=== PATIENT | male | born 1975 | race Caucasian/White ===

== ENCOUNTER 2023-07-03 11:46 | Outpatient (REF) | payer MEDICARE, MEDICAID, SELFPAY | END 2023-07-03 11:47 | disposition home or self-care (01) | LOC: HO.LAB 11:46 | PROVIDERS: PCP Family Medicine; Visit Provider Family Medicine | DX: Z13.89 Encounter for screening for other disorder (principal) ==

== ENCOUNTER 2023-07-16 10:02 | Outpatient (REF) | payer MEDICARE, SELFPAY ==
[2023-07-16 10:37] LABS: MANUAL DIFF FLAG NO
[2023-07-16 10:57] LABS: Basophils Percent Auto 0.6 % (0-2); Eosinophils Absolute Auto 0.1 X10*3/uL (0.0-0.4); Eosinophils Percent Auto 2.5 % (0-4); Hematocrit 41.2 % (42.0-52.0); Imm Gran Abs Auto 0.02 X10*3/uL (0.00-0.03); Imm Gran Pct Auto 0.4 % (0.0-0.4); Lymphocytes Absolute Auto 2.4 X10*3/uL (1.2-4.9); Lymphocytes Percent Auto 45.6 % (20-40); Mean Corpuscular Hemoglobin 28.5 pg (27.0-33.0); Mean Corpuscular Volume 83.9 fL (80.0-98.0); Mean Platelet Volume 9.1 fL (9.4-12.4); Monocytes Absolute Auto 0.4 X10*3/uL (0.1-1.2); Monocytes Percent Auto 6.8 % (2-11); Neutrophils Absolute Auto 2.3 x10*3/uL (2.0-8.3); Neutrophils Percent Auto 44.1 % (45-73); Platelet Count 329 X10*3/uL (160-400); Red Blood Count 4.91 X10*6/uL (4.60-5.80); Red Cell Distribution Width 12.4 % (11.0-16.0); White Blood Count 5.3 X10*3/uL (4.8-10.8)
[2023-07-16 11:28] LABS: Alanine Aminotransferase 22 U/L (0-40); Albumin Level 4.4 g/dL (3.5-5.0); Alkaline Phosphatase 67 U/L (39-117); Anion Gap 12 (12-20); Aspartate Amino Transferase 20 U/L (5-37); Bilirubin Total 0.3 mg/dL (0.0-1.0); Blood Urea Nitrogen 14 mg/dL (9-16); Calcium 9.8 mg/dL (8.4-10.2); Carbon Dioxide 25 mmol/L (22-29); Chloride 107 mmol/L (96-108); Cholesterol 242 mg/dL (<200); Estimated Glomerular Filt Rate > 60; Glucose Random 91 mg/dL (60-115); HDL Cholesterol 55 mg/dL (>40); LDL Cholesterol Calculated 159 mg/dL (<100); Potassium 3.8 mmol/L (3.3-5.1); Sodium 140 mmol/L (135-145); Total Protein 7.6 g/dL (6.5-8.0); Triglycerides 140 mg/dL (<150)
[2023-07-16 11:45] LABS: TSH reflex Free T4 1.13 uIU/mL (0.32-4.0)
[2023-07-19 18:44] LABS: Levetiracetam Keppra <2.0 mcg/mL (6.0-46.0)
== END 2023-07-16 10:03 | disposition home or self-care (01) ==
LOC: HO.LAB 10:02
PROVIDERS: PCP Family Medicine; Visit Provider Family Medicine
DX: Z00.00 Encounter for general adult medical examination without abnormal findings (principal); G40.909 Epilepsy, unspecified, not intractable, without status epilepticus
CPT/HCPCS: 36415; 80053; 80061; 80177; 84443; 85025

== ENCOUNTER 2024-01-03 09:58 | Outpatient (AMB) | payer MEDICARE, MEDICAID, SELFPAY ==
[2024-01-03 10:08] VITALS: BP 122/70; PULSE 81; O2SAT 98; BMI 28.6
--- NOTE | 2024-01-03 10:08 | A.OFFPC_ITS ---
Vital Signs 01/03/24 10:08 Height 5 ft 5 in Weight 172 lb BMI 28.6 BP 122/70 Blood Pressure Location Lt brachial Position Sitting Pulse 81 Pulse Source Pulse Oximeter Pulse Oximetry (%) 98 Oxygen Delivery Method Room Air Intake Visit Reasons: New patient-req physical Intake Note: Patient is here as new patient, and would like to talk about depression. Allergies phenytoin [From Dilantin] Allergy (Mild, Verified 01/03/24 10:11) Unknown cephlasporins Allergy (Mild, Uncoded 01/03/24 10:11) Unknown Tobacco use date assessed: 01/03/24 Dental Screening Dental Screen Date: 01/03/24 Did you have a dental visit in the last 12 months?: Yes Did you have a dental problem in the last 6 months where you did not have access to dental care?: No Was dental information given to patient?: Patient has dentist HPI New patient-req physical HPI Details New patient Prior PCP:?Edgar Jackson. [facility]. Last office visit/CPE: Dec 12 2022 Acute issue(s): Anxiety/depression. PMHx: Hx Head trauma age 8. Epilesy/ Seizure d.o. L eye Blindness. R eye vision is low with visual feild loss. SurgHx: L ing hernia & mesh. Ear surgeries. FHx: Pt unsure SocHx: Nonsmoker. EtOH None. No drugs PFSH Medical History (Updated 01/03/24 @ 11:01 by Luis Cruz) Blindness of left eye Epilepsy Meningitis Surgical History (Updated 01/03/24 @ 10:31 by Tia Isbell [facility]) H/O brain surgery Social History Household Members: Family Both parents involved: Yes Caregiver staying overnight: No Housing: Apartment Are you a primary resident care manager rn to a significant other at home: No Do you presently have visiting nurse or other home services: No Alcohol intake: never Patient Tobacco Use Status: Never used Tobacco service: No Current occupational status: disabled Cognitive needs: No Hearing needs: No Vision needs: Yes (Patient is blind in left eye.) Questionnaire PHQ-9 Over the last 2 weeks, how often have you been bothered by any of the following problems? 1. Little interest or pleasure in doing things: not at all 2. Feeling down, depressed, or hopeless: more than half the days 3. Trouble falling or staying asleep, or sleeping too much: nearly every day 4. Feeling tired or having little energy: not at all 5. Poor appetite or overeating: not at all 6. Feeling bad about yourself - or that you are a failure or have let yourself or your family down: several days 7. Trouble concentrating on things, such as reading the newspaper or watching television: not at all 8. Moving or speaking so slowly that other people could have noticed. Or the opposite - being so fidgety or restless that you have been moving around a lot more than usual: nearly every day 9. Thoughts that you would be better off or of hurting yourself in some way: not at all Total score: 9 Depression Screening Interpretation: Positive Depression Screening Follow-up: New Medication prescribed Depression Screening Done: Yes 77458 - PHQ-9 Billing: Yes Source: Developed by Drs. Ney Vincent, Leann Ventura, Ej Culver and colleagues, with an educational efra from [employer]. Thrive Questionnaire Date Thrive assessed: 01/03/24 I am a: Patient What is your living situation today?: I have a steady place to live Within the past 12 months, did the food you bought not last and you didn't have the money to get more?: Never true Within the past 12 months, did you worry whether your food would run out before you got money to buy more?: Never true Do you have trouble paying for medicines?: No Do you have trouble getting transportation to medical appointments?: No Do you have trouble paying your heating and electricity bill?: No Do you have trouble taking care of your child, family member or friend?: No Do you have trouble with day-to-day activities such as bathing, preparing meals, shopping, managing finances, etc.?: No Are you currently unemployed and looking for a job?: No Are you interested in more education?: No THRIVE Score: 0 AUDIT C Alcohol Use Questionnaire (AUDIT-C) 1. How often do you have a drink containing alcohol?: Never 3. How often do you have six or more drinks on one occasion?: Never Total Score: 0 WILLIAM-7 AMB Questionnaire WILLIAM-7 Date WILLIAM - 7 assessed: 01/03/24 Feeling nervous, anxious, or on edge: 3 = Nearly every day Not being able to stop or control worryin = Nearly every day Worrying too much about different things: 3 = Nearly every day Trouble relaxin = Nearly every day Being so restless that it is hard to sit still: 3 = Nearly every day Becoming easily annoyed or irritable: 3 = Nearly every day Feeling afraid as if something awful might happen: 0 = Not at all Total WILLIAM-7 score (0-4 normal; 5-9 mild; 10-14 moderate; 15-21 severe): 18 Source: Developed by Drs. Ney Vincent, Leann Ventura, Ej Culver and colleagues, with an educational efra from [employer]. WILLIAM-7 Assessment Billing WILLIAM-7 Assessment Tool: WILLIAM-7 Assessment 77151 Review of Systems Const Denies chills, Denies fatigue, Denies fever(s), Denies headache(s) and Denies weakness ENT Denies dizziness and Denies headache(s) Card Denies chest pain, Denies lightheadedness, Denies dyspnea and Denies other (Palpitations) Resp Denies cough, Denies dyspnea, Denies wheezing and Denies other ( shortness of breath) Musc Denies numbness and Denies tingling Neuro Denies dizziness, Denies headache(s), Denies numbness, Denies tingling, Denies paresthesias and Denies weakness Psych Reports anxiety and Reports depression Endo Denies fatigue Aller/Immun Denies wheezing Physical exam (Primary Care) Vital Signs: Last Vital Signs Pulse 81 01/03/24 10:08 BP 122/70 01/03/24 10:08 Pulse Ox 98 01/03/24 10:08 Oxygen Delivery Method Room Air 01/03/24 10:08 BMI result Body Mass Index 28.6 Tobacco/Smoking Status: Tobacco use Status Tobacco use date assessed 01/03/24 01/03/24 10:28 Patient Tobacco Use Status Never used Tobacco 01/03/24 10:36 PHQ-9: PHQ-9 Score PHQ-9: Total score 9 01/03/24 10:32 Depression Screening Interpretation: Positive Depression Screening Follow-up: New Medication prescribed Thrive Assessment: Date of Thrive Assessment Date Thrive assessed 01/03/24 01/03/24 10:28 Const General: no acute distress and well developed Nutritional Appearance: well nourished Orientation/consciousness: patient oriented x3 HENTX Head: Yes normocephalic and Yes atraumatic Eyes General: appearance normal, both eyes and all related structures Pupils: Equal, round and reactive pupils present EOM: EOMs intact bilaterally Resp Effort & Inspection: normal respiratory effort Auscultation: clear to auscultation bilaterally Cardio Rate: regular rate Rhythm: regular rhythm Heart sounds: S1 normal heart sound present, S2 normal heart sound present, no gallops, no murmurs and no rubs Neuro General: patient oriented x3 and gait normal Cranial nerves: Yes Equal, round and reactive pupils present Psych Affect: normal affect Assessment and Plan Assessment & Plan (1) Anxiety with depression: Code(s): F41.8 - Other specified anxiety disorders Plan: Significant?anxiety?and?depression. Had?tried?sertraline?in?the?past?and?is?on?lamotrigine?for?seizures?but?can?al so?help?with?mood?disorders. No?significant?concerns?for?bipolar?disorder Will?trial?citalopram Offered?to?refer?patient?to?therapist?but?he?would?like?to?think?about?this. (2) Epilepsy: Code(s): G40.909 - Epilepsy, unspecified, not intractable, without status epilepticus Plan: On?lamotrigine?since?he?was?a?child. Has?not?had?a?seizure?in?many?years Stable Continue?lamotrigine (3) Blindness of left eye: Code(s): H54.40 - Blindness, one eye, unspecified eye Plan: Complete?blindness?in?left?eye?and poor?vision?with?decreased?field?of?view?of?right?eye Referred?to?ophthalmology (4) Seizure disorder: Code(s): G40.909 - Epilepsy, unspecified, not intractable, without status epilepticus (5) Vision changes: Code(s): H53.9 - Unspecified visual disturbance (6) Laboratory exam ordered as part of routine general medical examination: Code(s): Z00.00 - Encounter for general adult medical examination without abnormal findings Plan: Check?lab Orders: Orders Microalbumin, Random (w Creat) Today I10 - Essential (primary) hypertension Prostate Specific Antigen Scr Today Z12.5 - Encounter for screening for malignant neoplasm of prostate Lipid Panel Today Z00.00 - Encounter for general adult medical examination without abnormal findings UA and rflx microscopic Today Z00.00 - Encounter for general adult medical examination without abnormal findings Vitamin D 25-OH Total Today E55.9 - Vitamin D deficiency, unspecified Comprehensive [place]. Panel Fast Today Z00.00 - Encounter for general adult medical examination without abnormal findings TSH reflex Free T4 Today Z00.00 - Encounter for general adult medical examination without abnormal findings Complete Blood Count Auto Diff Today Z00.00 - Encounter for general adult medical examination without abnormal findings Referrals Ophthalmology Referral H53.9 - Unspecified visual disturbance, H54.40 - Blindness, one eye, unspecified eye Medications: New citalopram 10 mg PO DAILY 30 tabs 1RF 30 days Coding Level of Care Code New Pt Level 3 (46288) Diagnoses Anxiety with depression F41.8 Epilepsy G40.909 Blindness of left eye H54.40 Seizure disorder G40.909 Vision changes H53.9 Laboratory exam ordered as part of routine general medical examination Z00.00 Additional Codes WILLIAM-7 Assessment Billing - WILLIAM-7 Assessment Tool: WILLIAM-7 Assessment [id number] ([id number])
== END 2024-01-03 11:20 | disposition home or self-care (01) ==
PROVIDERS: PCP Family Medicine; Visit Provider Family Medicine
DX: F41.8 Other specified anxiety disorders (principal); G40.909 Epilepsy, unspecified, not intractable, without status epilepticus; H53.9 Unspecified visual disturbance
CPT/HCPCS: 96127; 99203

== ENCOUNTER 2024-02-14 10:33 | Outpatient (AMB) | payer MEDICARE, SELFPAY ==
[2024-02-14 10:36] VITALS: BP 118/70; PULSE 69; O2SAT 95; BMI 28.5
--- NOTE | 2024-02-14 10:36 | A.OFFPC_ITS ---
Vital Signs 02/14/24 10:36 Height 5 ft 5 in Weight 171 lb 4 oz BMI 28.5 BP 118/70 Blood Pressure Location Lt brachial Position Sitting Pulse 69 Pulse Source Pulse Oximeter Pulse Oximetry (%) 95 Oxygen Delivery Method Room Air Intake Visit Reasons: f/u anxiety/depression Intake Note: Patient is here to follow up on anxiety/depression today. Allergies phenytoin [From Dilantin] Allergy (Mild, Verified 02/14/24 10:38) Unknown cephlasporins Allergy (Mild, Uncoded 02/14/24 10:38) Unknown Tobacco use date assessed: 02/14/24 Dental Screening Dental Screen Date: 02/14/24 HPI f/u anxiety/depression 2 HPI Details 48 y/o male presents to f/u anxiety/depr ession. Trialing citalopram and recommended therapist. Had tried sertraline in the past and is on lamotrigine for seizures but can also help with mood disorders. PHQ-9 4 and WILLIAM-7 1 today. [facility] Medical History (Updated 01/03/24 @ 11:01 by Luis Cruz) Blindness of left eye Epilepsy Meningitis Surgical History (Updated 01/03/24 @ 10:31 by Tia Isbell CMA) H/O brain surgery Social History (Updated 01/03/24 @ 10:36 by Tia Isbell CMA) Household Members: Family Both parents involved: Yes Caregiver staying overnight: No Housing: Apartment Are you a primary resident care associate to a significant other at home: No Do you presently have visiting nurse or other home services: No Alcohol intake: never Patient Tobacco Use Status: Never used Tobacco e-Cigarette/Vaping Use: Never Used service: No Current occupational status: disabled Cognitive needs: No Hearing needs: No Vision needs: Yes (Patient is blind in left eye.) Questionnaire PHQ-9 Over the last 2 weeks, how often have you been bothered by any of the following problems? 1. Little interest or pleasure in doing things: not at all 2. Feeling down, depressed, or hopeless: not at all 3. Trouble falling or staying asleep, or sleeping too much: nearly every day 4. Feeling tired or having little energy: several days 5. Poor appetite or overeating: not at all 6. Feeling bad about yourself - or that you are a failure or have let yourself or your family down: not at all 7. Trouble concentrating on things, such as reading the newspaper or watching television: not at all 8. Moving or speaking so slowly that other people could have noticed. Or the opposite - being so fidgety or restless that you have been moving around a lot more than usual: not at all 9. Thoughts that you would be better off or of hurting yourself in some way: not at all Total score: 4 Depression Screening Interpretation: Negative Depression Screening Done: Yes 51303 - PHQ-9 Billing: Yes Source: Developed by Drs. Ney Vincent, Ej Crump and colleagues, with an educational efra from [employer] (acquired by [employer] in 2014). Thrive Questionnaire Date Thrive assessed: 01/03/24 WILLIAM-7 AMB Questionnaire WILLIAM-7 Date WILLIAM - 7 assessed: 02/14/24 Feeling nervous, anxious, or on edge: 0 = Not at all Not being able to stop or control worryin = Not at all Worrying too much about different things: 0 = Not at all Trouble relaxin = Not at all Being so restless that it is hard to sit still: 0 = Not at all Becoming easily annoyed or irritable: 1 = Several days Feeling afraid as if something awful might happen: 0 = Not at all Total WILLIAM-7 score (0-4 normal; 5-9 mild; 10-14 moderate; 15-21 severe): 1 Source: Developed by Drs. Ney Vincent, Ej Crump and colleagues, with an educational efra from [employer] (acquired by [employer] in 2014). WILLIAM-7 Assessment Billing WILLIAM-7 Assessment Tool: WILLIAM-7 Assessment 76247 Review of Systems Const Denies chills, Denies fatigue, Denies fever(s), Denies headache(s) and Denies weakness ENT Denies dizziness and Denies headache(s) Card Denies dyspnea Resp Denies cough, Denies dyspnea, Denies wheezing and Denies other (shortness of breath) Musc Denies numbness and Denies tingling Neuro Denies dizziness, Denies headache(s), Denies numbness, Denies tingling and Denies weakness Psych Denies anxiety and Denies depression Endo Denies fatigue Aller/Immun Denies wheezing Physical exam (Primary Care) Vital Signs: Last Vital Signs Pulse 69 02/14/24 10:36 BP 118/70 02/14/24 10:36 Pulse Ox 95 02/14/24 10:36 Oxygen Delivery Method Room Air 02/14/24 10:36 BMI result Body Mass Index 28.5 Tobacco/Smoking Status: Tobacco use Status Tobacco use date assessed 02/14/24 02/14/24 10:39 Patient Tobacco Use Status Never used Tobacco 02/14/24 10:39 e-Cigarette/Vaping Use Never Used 02/14/24 10:39 PHQ-9: PHQ-9 Score PHQ-9: Total score 4 02/14/24 10:58 Depression Screening Interpretation: Negative Thrive Assessment: Date of Thrive Assessment Date Thrive assessed 01/03/24 02/14/24 10:39 Const General: well developed; No acute distress Nutritional Appearance: well nourished Orientation/consciousness: patient oriented x3 HENMT Head: Yes normocephalic and Yes atraumatic Eyes General: appearance normal, both eyes and all related structures Pupils: Equal, round and reactive pupils present EOM: EOMs intact bilaterally Resp Effort & Inspection: normal respiratory effort Auscultation: clear to auscultation bilaterally Cardio Rate: regular rate Rhythm: regular rhythm Heart sounds: S1 normal heart sound present, S2 normal heart sound present, no gallops, no murmurs and no rubs Neuro General: patient oriented x3 and gait normal Cranial nerves: Yes Equal, round and reactive pupils present Psych Affect: normal affect Assessment and Plan Assessment & Plan (1) Anxiety with depression: Code(s): F41.8 - Other specified anxiety disorders Plan: Significant?improvement?in?anxiety?and?depression. Continue?citalopram?10?mg?daily. We?discussed?that?at?some?point?he?may?need?an ?increase?in?his?medication?and?he?will?let?me?know?if?he?is?having?worsening?of ?his?symptoms. Patient?has?had?longstanding?mood?disorder?since?a?head?injury?in?1982.??We?disc ussed?he?may?always?need?some?medication?to?help?with?mood Also?encouraged?exercise He?has?another?appointment?in?May?for?his?physical. Coding Level of Care Code Est Pt Level 3 (35153) Diagnoses Anxiety with depression F41.8 Additional Codes WILLIAM-7 Assessment Billing - WILLIAM-7 Assessment Tool: WILLIAM-7 Assessment [id number] ([id number])
== END 2024-02-14 11:12 | disposition home or self-care (01) ==
PROVIDERS: PCP Family Medicine; Visit Provider Family Medicine
DX: F41.8 Other specified anxiety disorders (principal)
CPT/HCPCS: 99213

== ENCOUNTER 2024-04-17 10:55 | Outpatient (AMB) | payer MEDICARE, SELFPAY ==
--- NOTE | 2024-04-17 11:13 | MHC.PC.OV ---
Vital Signs 04/17/24 11:14 Height 5 ft 5 in Weight 171 lb 6 oz BMI 28.5 BP 120/60 Blood Pressure Location Lt brachial Position Sitting Pulse 73 Pulse Source Pulse Oximeter Pulse Oximetry (%) 97 Oxygen Delivery Method Room Air Intake Visit Reasons: CPE Follow up labs Intake Note: Patient is here for his physical today, forgot to do his labs. Patient would like Citalopram increase, and is concerned about insomnia. Allergies phenytoin [From Dilantin] Allergy (Mild, Verified 04/17/24 11:18) Unknown cephlasporins Allergy (Mild, Uncoded 04/17/24 11:18) Unknown Medication List - Last Reconciled 04/17/24 by Dale Odom MD citalopram 10 mg PO DAILY 30 days ibuprofen (Advil) 800 mg PO Q6H lamotrigine 150 mg PO BID Tobacco use date assessed: 04/17/24 Dental Screening Dental Screen Date: 02/14/24 HPI CPE Follow up labs HPI Details 48 y/o male presents for a CPE with f/u labs and health maintenance. No recent labs to review. He is on citalopram 10mg daily. He is requesting an increase of his citalopram. He does note citalopram has been helping significantly. He does not have a therapist. Pt reports difficulty sleeping. He states mind does not race and is unable to fall asleep. He states he has trialed melatonin, ambien, triptophan in the past which did not work. He reports difficulty sleeping every night. He has had difficulty sleeping since the s. He reports he does have sleep apnea. He does use a CPAP machine which does not help. He walks frequently for exercise. [facility] Medical History Blindness of left eye Epilepsy Meningitis Surgical History H/O brain surgery Social History Household Members: Family Housing: Apartment Are you a primary acute care nurse to a significant other at home: No Do you presently have visiting nurse or other home services: No Alcohol intake: never Patient Tobacco Use Status: Never used Tobacco e-Cigarette/Vaping Use: Never Used service: No Current occupational status: disabled Cognitive needs: No Hearing needs: No Vision needs: Yes (Patient is blind in left eye.) Questionnaire PHQ-9 Over the last 2 weeks, how often have you been bothered by any of the following problems? 1. Little interest or pleasure in doing things: not at all 2. Feeling down, depressed, or hopeless: not at all 3. Trouble falling or staying asleep, or sleeping too much: nearly every day 4. Feeling tired or having little energy: several days 5. Poor appetite or overeating: not at all 6. Feeling bad about yourself - or that you are a failure or have let yourself or your family down: not at all 7. Trouble concentrating on things, such as reading the newspaper or watching television: several days 8. Moving or speaking so slowly that other people could have noticed. Or the opposite - being so fidgety or restless that you have been moving around a lot more than usual: not at all 9. Thoughts that you would be better off or of hurting yourself in some way: not at all Total score: 5 Depression Screening Interpretation: Negative Depression Screening Done: Yes 56833 - PHQ-9 Billing: Yes Source: Developed by Drs. Ney Vincent, Leann Ventura, Ej Culver and colleagues, with an educational efra from [employer]. Thrive Questionnaire Date Thrive assessed: 04/17/24 I am a: Patient What is your living situation today?: I have a steady place to live Within the past 12 months, did the food you bought not last and you didn't have the money to get more?: Never true Within the past 12 months, did you worry whether your food would run out before you got money to buy more?: Never true Do you have trouble paying for medicines?: No Do you have trouble getting transportation to medical appointments?: No Do you have trouble paying your heating and electricity bill?: No Do you have trouble taking care of your child, family member or friend?: No Do you have trouble with day-to-day activities such as bathing, preparing meals, shopping, managing finances, etc.?: No Are you currently unemployed and looking for a job?: No Are you interested in more education?: No THRIVE Score: 0 AUDIT C Alcohol Use Questionnaire (AUDIT-C) 1. How often do you have a drink containing alcohol?: Never 3. How often do you have six or more drinks on one occasion?: Never Total Score: 0 WILLIAM-7 AMB Questionnaire WILLIAM-7 Date WILLIAM - 7 assessed: 04/17/24 Feeling nervous, anxious, or on edge: 1 = Several days Not being able to stop or control worryin = Not at all Worrying too much about different things: 0 = Not at all Trouble relaxin = Not at all Being so restless that it is hard to sit still: 3 = Nearly every day Becoming easily annoyed or irritable: 1 = Several days Feeling afraid as if something awful might happen: 0 = Not at all Total WILLIAM-7 score (0-4 normal; 5-9 mild; 10-14 moderate; 15-21 severe): 5 Source: Developed by Drs. Ney Vincent, Leann Ventura, Ej Culver and colleagues, with an educational efra from [employer]. WILLIAM-7 Assessment Billing WILLIAM-7 Assessment Tool: WILLIAM-7 Assessment 98085 Review of Systems Const Denies chills, Denies fatigue, Denies fever(s), Denies headache(s) and Denies weakness Eyes Denies change in vision ENT Denies dizziness, Denies headache(s), Denies hearing loss, Denies nasal congestion, Denies sinus pain, Denies sinus pressure and Denies sore throat Card Denies chest pain, Denies lightheadedness, Denies dyspnea and Denies other (palpitations) Resp Denies cough, Denies dyspnea and Denies wheezing GI Denies abdominal pain, Denies melena, Denies hematochezia, Denies change in bowel habits, Denies dyspepsia and Denies nausea Denies hematuria and Denies dysuria Musc Denies abnormal gait, Denies myalgias, Denies arthralgias, Denies numbness and Denies tingling Skin/Breast Denies rash, Denies unusual bruising and Denies wounds Neuro Denies abnormal gait, Denies dizziness, Denies headache(s), Denies memory loss, Denies numbness, Denies Sensory deficit (Neuro), Denies tingling and Denies weakness Psych Reports anxiety, Reports depression and Denies memory loss Endo Denies cold intolerance, Denies fatigue, Denies heat intolerance, Denies polydipsia and Denies polyuria Arie/Lymph Denies easy bleeding and Denies easy bruising Aller/Immun Denies wheezing Physical exam (Primary Care) Vital Signs: Last Vital Signs Pulse 73 04/17/24 11:14 BP 120/60 04/17/24 11:14 Pulse Ox 97 04/17/24 11:14 Oxygen Delivery Method Room Air 04/17/24 11:14 BMI result Body Mass Index 28.5 Tobacco/Smoking Status: Tobacco use Status Tobacco use date assessed 04/17/24 04/17/24 11:29 Patient Tobacco Use Status Never used Tobacco 04/17/24 11:17 e-Cigarette/Vaping Use Never Used 04/17/24 11:17 PHQ-9: PHQ-9 Score PHQ-9: Total score 5 04/17/24 11:56 Depression Screening Interpretation: Negative Thrive Assessment: Date of Thrive Assessment Date Thrive assessed 04/17/24 04/17/24 11:29 Const General: no acute distress, well developed, alert and awake Nutritional Appearance: well nourished Orientation/consciousness: patient oriented x3 HENMT Head: Yes normocephalic and Yes atraumatic Ears: hearing grossly normal bilaterally and TM's normal bilaterally General nose exam: Normal external nose present and Normal nares present Mouth: Normal oral and palatal mucosa present and moist mucous membranes Teeth and gingiva: dentition normal Throat: Yes posterior oropharynx normal Eyes Other: L eye blindness General: appearance abnormal, both eyes Pupils: Equal, round and reactive pupils present and Pupil accommodation reflex normal EOM: EOMs intact bilaterally Neck Neck: Yes normal visual inspection, Yes no lymphadenopathy and Yes trachea midline Thyroid: Thyroid normal Carotids: no bruits Lymphatic: no lymphadenopathy noted Chest Chest palpation & inspection: normal inspection of the chest Resp Effort & Inspection: normal respiratory effort Auscultation: clear to auscultation bilaterally Cardio Rate: regular rate Rhythm: regular rhythm Heart sounds: S1 normal heart sound present, S2 normal heart sound present, no gallops, no murmurs and no rubs Bruits: no abdominal aortic bruits and no carotid bruits GI Palpation (GI): No Abdominal aortic bruit present, Soft to palpation, nontender, No hepatosplenomegaly present and No Rebound tenderness present Auscultation: normal bowel sounds General: Yes no CVA tenderness Back/Spine/Pelvis Back: no CVA tenderness Cervical Spine: cervical ROM normal and No Cervical spine tenderness Thoracic/Lumbar Spine: thoraco-lumbar ROM normal, No pain with thoraco-lumbar ROM, No thoracic spinal tenderness and No lumbar spinal tenderness Skin Lesions: no lesions Rashes: no rashes Trauma: no lacerations or abrasions Wounds: no wounds Nails: normal Neuro General: patient oriented x3 Cranial nerves: Yes Equal, round and reactive pupils present Cognition (Neuro): normal cognition Gait exam (Neuro): Normal gait present Motor exam (neuro): 5/5 motor strength present throughout Sensory Exam: No Sensory deficit (Neuro) Deep tendon reflexes (DTR's): Right patellar reflex intensity grade: 2+ and Left patellar reflex intensity grade: 2+ Extrem General: Yes normal to inspection and No edema Psych Appearance: grossly normal Affect: normal affect Attitude: cooperative Thought process: Normal thought process present Assessment and Plan Assessment & Plan (1) Adult general medical exam: Code(s): Z00.00 - Encounter for general adult medical examination without abnormal findings Plan: 48-year-old?male?presents?for?complete?physical?exam Encouraged?healthy?diet?with?active?lifestyle?and?plenty?of?exercise (2) Anxiety with depression: Code(s): F41.8 - Other specified anxiety disorders Plan: Citalopram?is?helping?and?he?requests?an?increase?in?the?medication Will?increase?citalopram?from?10?mg?daily?to?20?mg?daily He?can?let?me?know?how?he?is?doing?with?this?at?follow-up?telemedicine?appointment?in?a?few?weeks (3) Difficulty sleeping: Code(s): G47.9 - Sleep disorder, unspecified Plan: Rather?severe?insomnia?as?well?as?difficulty?staying?asleep?and?patient?has?a?history?of?sleep?apnea?as?well.??Also?has?a?history?of?anxiety?depression?and?epilepsy. Referred?to?,?neurology?and?sleep?medicine Will?trial?some?trazodone (4) Sleep apnea: Code(s): G47.30 - Sleep apnea, unspecified Plan: Patient?has?a?CPAP?machine?encouraged?him?to?continue?using?this (5) Blindness of left eye: Code(s): H54.40 - Blindness, one eye, unspecified eye Plan: Stable (6) Screening for prostate cancer: Code(s): Z12.5 - Encounter for screening for malignant neoplasm of prostate Plan: Check?PSA (7) Screening for colon cancer: Code(s): Z12.11 - Encounter for screening for malignant neoplasm of colon Plan: Will?discuss?at?follow-up?telemedicine?appointment Orders: Orders Microalbumin, Random (w Creat) Today I10 - Essential (primary) hypertension Complete Blood Count Auto Diff Today Z00.00 - Encounter for general adult medical examination without abnormal findings Comprehensive Met. Panel Today G40.909 - Epilepsy, unspecified, not intractable, without status epilepticus Vitamin D 25-OH Total Today E55.9 - Vitamin D deficiency, unspecified UA and rflx microscopic Today Z00.00 - Encounter for general adult medical examination without abnormal findings TSH reflex Free T4 Today Z00.00 - Encounter for general adult medical examination without abnormal findings Prostate Specific Antigen Scr Today Z12.5 - Encounter for screening for malignant neoplasm of prostate Referrals Sleep Medicine Referral G40.909 - Epilepsy, unspecified, not intractable, without status epilepticus, G47.00 - Insomnia, unspecified, G47.30 - Sleep apnea, unspecified Medications: Changed From citalopram 10 mg PO DAILY 30 days 30 tabs 1RF To citalopram 20 mg PO DAILY 30 days 30 tabs 2RF Coding Level of Care Code Est Pt Level 3 (57414) Est Pt Prev Care 40-64y(71393) Diagnoses Adult general medical exam Z00.00 Anxiety with depression F41.8 Difficulty sleeping G47.9 Sleep apnea G47.30 Blindness of left eye H54.40 Screening for prostate cancer Z12.5 Screening for colon cancer Z12.11 Additional Codes WILLIAM-7 Assessment Billing - WILLIAM-7 Assessment Tool: WILLIAM-7 Assessment [id number] ([id number])
[2024-04-17 11:14] VITALS: BP 120/60; PULSE 73; O2SAT 97; BMI 28.5
== END 2024-04-17 12:44 | disposition home or self-care (01) ==
PROVIDERS: PCP Family Medicine; Visit Provider Family Medicine
DX: Z00.00 Encounter for general adult medical examination without abnormal findings (principal); F41.8 Other specified anxiety disorders; G47.9 Sleep disorder, unspecified; G47.30 Sleep apnea, unspecified; Z12.5 Encounter for screening for malignant neoplasm of prostate; Z12.11 Encounter for screening for malignant neoplasm of colon
CPT/HCPCS: 99213; 99396

== ENCOUNTER 2024-04-17 11:58 | Outpatient (REF) | payer MEDICARE, MEDICAID, SELFPAY ==
[2024-04-17 14:20] LABS: MANUAL DIFF FLAG NO
[2024-04-17 14:33] LABS: Basophils Percent Auto 0.7 % (0-2); Eosinophils Absolute Auto 0.1 X10*3/uL (0.0-0.4); Hemoglobin 13.7 g/dl (14.0-18.0); Imm Gran Abs Auto 0.01 X10*3/uL (0.00-0.03); Imm Gran Pct Auto 0.2 % (0.0-0.4); Lymphocytes Absolute Auto 2.9 X10*3/uL (1.2-4.9); Lymphocytes Percent Auto 52.9 % (20-40); Mean Corpuscular HGB Conc 34.3 g/dl (31.0-36.0); Mean Corpuscular Hemoglobin 29.2 pg (27.0-33.0); Mean Corpuscular Volume 85.3 fL (80.0-98.0); Mean Platelet Volume 9.8 fL (9.4-12.4); Monocytes Absolute Auto 0.4 X10*3/uL (0.1-1.2); Monocytes Percent Auto 7.2 % (2-11); Platelet Count 346 X10*3/uL (160-400); Red Blood Count 4.69 X10*6/uL (4.60-5.80); Red Cell Distribution Width 12.5 % (11.0-16.0); White Blood Count 5.4 X10*3/uL (4.8-10.8)
[2024-04-17 14:34] LABS: Appearance Urine Clear; Color Urine Yellow; Glucose Urine UA Negative (Negative); Leukocyte Esterase Urine Negative (Negative); Nitrite Urine Negative (Negative); PH 5.5 (5.0-9.0); Specific Gravity - Urine >= 1.030 (1.005-1.025); Urine Blood Negative (Negative); Urine Ketones Trace mg/dL (Negative); Urine Protein Negative (Neg-Trace)
[2024-04-17 14:58] LABS: Prostate Specific Antigen Scr 0.34 ng/mL (<0.05-4.0)
[2024-04-17 15:06] LABS: Alanine Aminotransferase 15 U/L (0-40); Albumin Level 4.4 g/dL (3.5-5.0); Alkaline Phosphatase 71 U/L (39-117); Anion Gap 12 (12-20); Aspartate Amino Transferase 22 U/L (5-37); Bilirubin Total 0.3 mg/dL (0.0-1.0); Blood Urea Nitrogen 12 mg/dL (9-16); Calcium 9.5 mg/dL (8.4-10.2); Carbon Dioxide 27 mmol/L (22-29); Chloride 104 mmol/L (96-108); Cholesterol 232 mg/dL (<200); Estimated Glomerular Filt Rate > 60; Glucose Fasting 97 mg/dL (60-99); Glucose Random 97 mg/dL (60-115); HDL Cholesterol 51 mg/dL (>40); LDL Cholesterol Calculated 143 mg/dL (<100); Potassium 3.9 mmol/L (3.3-5.1); Sodium 139 mmol/L (135-145); Total Protein 7.4 g/dL (6.5-8.0); Triglycerides 192 mg/dL (<150)
[2024-04-17 15:14] LABS: TSH reflex Free T4 1.14 uIU/mL (0.32-4.0); Vitamin D 25-OH Total 48.6 ng/mL (>30)
[2024-04-17 15:40] LABS: Creatinine Urine 264.48 mg/dL; Microalbum/Creatinine Ratio Ur 10.5 ug/mg cr (<30)
== END 2024-04-17 11:59 | disposition home or self-care (01) ==
LOC: HO.WFDLDS 11:58
PROVIDERS: Visit Provider Family Medicine
DX: Z00.00 Encounter for general adult medical examination without abnormal findings (principal); Z12.5 Encounter for screening for malignant neoplasm of prostate; E55.9 Vitamin D deficiency, unspecified; I10 Essential (primary) hypertension; G40.909 Epilepsy, unspecified, not intractable, without status epilepticus
CPT/HCPCS: 36415; 80053; 80061; 81003; 82043; 82306; 82570; 84153; 84443; 85025

== ENCOUNTER 2024-05-07 14:47 | Outpatient (AMB) | payer MEDICARE, MEDICAID, SELFPAY ==
--- NOTE | 2024-05-07 14:42 | MHC.PC.OV ---
Intake Visit Reasons: f/u CPE-labs via telemedicine Intake Note: Patient is scheduled for telehealth, follow up on labs, he states the Trazodone is not working well, would like to talk about that. Allergies phenytoin [From Dilantin] Allergy (Mild, Verified 04/17/24 11:18) Unknown cephlasporins Allergy (Mild, Uncoded 04/17/24 11:18) Unknown Tobacco use date assessed: 04/17/24 Dental Screening Dental Screen Date: 02/14/24 HPI f/u CPE-labs via telemedicine HPI Details 48 y/o male presents to f/u CPE-labs via telemedicine. Labs were drawn 04/17/24. Reviewed labs with pt. Mild anemia. Triglycerides 192. TC 232. LDL 143. HDL 51. Pt reports ongoing difficulty sleeping. He is on trazodone which does not seem to have been helping. Had an appt. with a sleep specialist but pt states he had been unable to make this. Increased citalopram and pt denies any problems with this. [facility] Medical History Blindness of left eye Epilepsy Meningitis Surgical History H/O brain surgery Social History Household Members: Family Both parents involved: Yes Caregiver staying overnight: No Housing: Apartment Are you a primary director of health care marketing to a significant other at home: No Do you presently have visiting nurse or other home services: No Alcohol intake: never Patient Tobacco Use Status: Never used Tobacco e-Cigarette/Vaping Use: Never Used service: No Current occupational status: disabled Cognitive needs: No Hearing needs: No Vision needs: Yes (Patient is blind in left eye.) Questionnaire Thrive Questionnaire Date Thrive assessed: 04/17/24 WILLIAM-7 AMB Questionnaire WILLIAM-7 Date WILLIAM - 7 assessed: 04/17/24 Source: Developed by Drs. Ney Vincent, Leann Ventura, Ej Culver and colleagues, with an educational efra from [employer]. Review of Systems Const Denies chills, Denies fatigue, Denies fever(s), Denies headache(s) and Denies weakness ENT Denies dizziness and Denies headache(s) Card Denies dyspnea Resp Denies cough, Denies dyspnea, Denies wheezing and Denies other (shortness of breath) Musc Denies numbness and Denies tingling Neuro Denies dizziness, Denies headache(s), Denies numbness, Denies tingling and Denies weakness Psych Denies anxiety and Denies depression Endo Denies fatigue Aller/Immun Denies wheezing Physical exam (Primary Care) Tobacco/Smoking Status: Tobacco use Status Tobacco use date assessed 04/17/24 05/07/24 14:46 Patient Tobacco Use Status Never used Tobacco 05/07/24 14:46 e-Cigarette/Vaping Use Never Used 05/07/24 14:46 Thrive Assessment: Date of Thrive Assessment Date Thrive assessed 04/17/24 05/07/24 14:46 Telehealth Telehealth Telehealth Platform: Telephone Location of provider rendering services: practice address Location of patient: address on file Patient Identification confirmed using: Name, : Yes Telehealth method: voice only Patient verbally consented to treatment: Yes Patient verbally consented to billing insurance company: Yes Patient informed of any privacy concerns related to visit: Yes Assessment and Plan Assessment & Plan (1) Hyperlipidemia: Code(s): E78.5 - Hyperlipidemia, unspecified Plan: Lipids?are?too?high. Encouraged?a?diet?lower?in?saturated?fats?and?cholesterol,?encouraged?exercise?and?weight?loss Will?recheck?in?3?months?and?we?discussed?that?if?he?is?unable?to?bring?his?cholesterol?levels?down?we?should?discuss?medication. (2) Insomnia: Code(s): G47.00 - Insomnia, unspecified Plan: Still?having?difficulty?with?sleep?as?well?as?anxiety Trazodone?is?not?helping?enough?at?50?mg?q.h.s.?so?I?increased?this?to?100?mg?q.h.s. He?seems?to?have?missed?his?appointment?with?sleep?medicine?so?I?have?made?a?new?referral.??Encouraged?patient?to?attend. (3) Anxiety with depression: Code(s): F41.8 - Other specified anxiety disorders Plan: Increase?citalopram?and?had?started?trazodone No?problems?with?these?medications?but?has?only?mild?improvements,?per?patient Will?increase?trazodone?and?he?should?continue?citalopram. Orders: Orders Complete Blood Count Auto Diff Today Z00.00 - Encounter for general adult medical examination without abnormal findings Lipid Panel Today E78.5 - Hyperlipidemia, unspecified, Z00.00 - Encounter for general adult medical examination without abnormal findings Comprehensive [place]. Panel Fast Today E78.5 - Hyperlipidemia, unspecified, Z00.00 - Encounter for general adult medical examination without abnormal findings Reticulocyte Count Today D64.9 - Anemia, unspecified Medications: Changed From trazodone 50 mg PO BEDTIME 30 days PRN 30 tabs 1RF sleep To trazodone 100 mg PO BEDTIME 30 days PRN 30 tabs 1RF sleep Coding Level of Care Code Tele Est Pt Level 2 (08211) Diagnoses Hyperlipidemia E78.5 Insomnia G47.00 Anxiety with depression F41.8
== END 2024-05-07 15:06 | disposition home or self-care (01) ==
LOC: HO.HMGFM 14:47
PROVIDERS: PCP Family Medicine; Visit Provider Family Medicine
DX: E78.5 Hyperlipidemia, unspecified (principal); G47.00 Insomnia, unspecified; F41.8 Other specified anxiety disorders
CPT/HCPCS: 99441

== ENCOUNTER 2024-08-05 08:52 | Outpatient (AMB) | payer MEDICARE, MEDICAID, SELFPAY ==
--- NOTE | 2024-08-05 08:55 | MHC.PC.OV ---
Vital Signs 08/05/24 09:02 Height 5 ft 5 in Weight 169 lb BMI 28.1 BP 104/68 Blood Pressure Location Rt brachial Position Sitting Respiration 14 Pulse 86 Pulse Source Pulse Oximeter Pulse Oximetry (%) 96 Oxygen Delivery Method Room Air Intake Visit Reasons: f/u HLD, difficulty sleeping Intake Note: Follow up labs and difficulty sleeping. Has been out of Trazadone for about a month. Hasnt been taking citolapram for months, unsure if he should still be taking. [employer] Required: No Allergies phenytoin [From Dilantin] Allergy (Mild, Verified 08/05/24 08:59) Unknown cephlasporins Allergy (Mild, Uncoded 08/05/24 08:59) Unknown Tobacco use date assessed: 04/17/24 Dental Screening Dental Screen Date: 02/14/24 HPI f/u HLD, difficulty sleeping HPI Details History?of?hyperlipidemia.??Patient?has?not?gotten?his?labs?drawn?yet. Still?having?difficulty?sleeping. Known?history?of?sleep?apnea.??Has?not?gotten?contacted?by?sleep?medicine?after?changing?his?referral. Had?initially?declined?referral?to?sleep?Medicine?but?more?recently?agreed?to?this. [facility] Medical History Blindness of left eye Epilepsy Meningitis Surgical History H/O brain surgery Social History Household Members: Family Both parents involved: Yes Caregiver staying overnight: No Housing: Apartment Are you a primary personal care home administrator to a significant other at home: No Do you presently have visiting nurse or other home services: No Alcohol intake: never Patient Tobacco Use Status: Never used Tobacco e-Cigarette/Vaping Use: Never Used service: No Current occupational status: disabled Cognitive needs: No Hearing needs: No Vision needs: Yes (Patient is blind in left eye.) Questionnaire Thrive Questionnaire Date Thrive assessed: 04/17/24 WILLIAM-7 AMB Questionnaire WILLIAM-7 Date WILLIAM - 7 assessed: 04/17/24 Source: Developed by Drs. Ney Vincent, Leann Ventura, Ej Culver and colleagues, with an educational efra from [employer]. Review of Systems Const Denies chills, Denies fatigue, Denies fever(s), Denies headache(s) and Denies weakness ENT Denies dizziness and Denies headache(s) Card Denies chest pain, Denies lightheadedness, Denies dyspnea and Denies other (Palpitations) Resp Denies cough, Denies dyspnea, Denies wheezing and Denies other ( shortness of breath) Musc Denies numbness and Denies tingling Neuro Denies dizziness, Denies headache(s), Denies numbness, Denies tingling, Denies paresthesias and Denies weakness Psych Denies anxiety and Denies depression Endo Denies fatigue Aller/Immun Denies wheezing Physical exam (Primary Care) Vital Signs: Last Vital Signs Pulse 86 08/05/24 09:02 Resp 14 08/05/24 09:02 BP 104/68 08/05/24 09:02 Pulse Ox 96 08/05/24 09:02 Oxygen Delivery Method Room Air 08/05/24 09:02 BMI result Body Mass Index 28.1 Tobacco/Smoking Status: Tobacco use Status Tobacco use date assessed 04/17/24 08/05/24 08:55 Patient Tobacco Use Status Never used Tobacco 08/05/24 08:55 e-Cigarette/Vaping Use Never Used 08/05/24 08:55 Thrive Assessment: Date of Thrive Assessment Date Thrive assessed 04/17/24 08/05/24 08:55 Const General: no acute distress and well developed Nutritional Appearance: well nourished Orientation/consciousness: patient oriented x3 [facility] Head: Yes normocephalic and Yes atraumatic Eyes General: appearance normal, both eyes and all related structures Pupils: Equal, round and reactive pupils present EOM: EOMs intact bilaterally Resp Effort & Inspection: normal respiratory effort Auscultation: clear to auscultation bilaterally Cardio Rate: regular rate Rhythm: regular rhythm Heart sounds: S1 normal heart sound present, S2 normal heart sound present, no gallops, no murmurs and no rubs Neuro General: patient oriented x3 and gait normal Cranial nerves: Yes Equal, round and reactive pupils present Psych Affect: normal affect Assessment and Plan Assessment & Plan (1) Hyperlipidemia: Code(s): E78.5 - Hyperlipidemia, unspecified Plan: Patient?has?not?gotten?his?labs?drawn?but?will?do?so?today. We?can?follow-up?in?a?few?weeks?by?telemedicine (2) Insomnia: Code(s): G47.00 - Insomnia, unspecified Plan: Still?having?some?difficulty?with?sleep Has?not?had?sleep?study?yet. Initially?he?had?a?declined?the?appointment?and?we?had?a?discussion?at?last?visit.??I?made?a?new?referral?and?since?then,?no?one?has?reach?out?him. Will?ask?the?office?to?check?on?the?status?of?this?referral?and?get?him?scheduled. (3) Sleep apnea: Code(s): G47.30 - Sleep apnea, unspecified Plan: As?above Orders: Orders LDL Cholesterol Direct Today E78.5 - Hyperlipidemia, unspecified Medications: Changed From citalopram 20 mg PO DAILY 30 days 30 tabs 2RF To citalopram 20 mg PO DAILY 90 days 90 tabs 3RF Coding Level of Care Code Est Pt Level 3 (83153) Diagnoses Hyperlipidemia E78.5 Insomnia G47.00 Sleep apnea G47.30
[2024-08-05 09:02] VITALS: BP 104/68; PULSE 86; RESP 14; O2SAT 96; BMI 28.1
== END 2024-08-05 09:28 | disposition home or self-care (01) ==
PROVIDERS: PCP Family Medicine; Visit Provider Family Medicine
DX: E78.5 Hyperlipidemia, unspecified (principal); G47.00 Insomnia, unspecified; G47.30 Sleep apnea, unspecified
CPT/HCPCS: 99213

== ENCOUNTER 2024-08-05 09:37 | Outpatient (REF) | payer MEDICARE, MEDICAID, SELFPAY ==
[2024-08-05 11:11] LABS: MANUAL DIFF FLAG NO
[2024-08-05 11:20] LABS: Basophils Percent Auto 0.7 % (0-2); Eosinophils Absolute Auto 0.2 X10*3/uL (0.0-0.4); Eosinophils Percent Auto 3.1 % (0-4); Hematocrit 41.9 % (42.0-52.0); Imm Gran Abs Auto 0.02 X10*3/uL (0.00-0.03); Imm Gran Pct Auto 0.4 % (0.0-0.4); Immature Retic Fraction 6.3 % (2.3-13.4); Lymphocytes Absolute Auto 2.9 X10*3/uL (1.2-4.9); Lymphocytes Percent Auto 53.5 % (20-40); Mean Corpuscular HGB Conc 33.4 g/dl (31.0-36.0); Mean Corpuscular Hemoglobin 28.4 pg (27.0-33.0); Mean Platelet Volume 9.7 fL (9.4-12.4); Monocytes Absolute Auto 0.3 X10*3/uL (0.1-1.2); Monocytes Percent Auto 5.8 % (2-11); Neutrophils Percent Auto 36.5 % (45-73); Platelet Count 336 X10*3/uL (160-400); Red Blood Count 4.93 X10*6/uL (4.60-5.80); Red Cell Distribution Width 12.3 % (11.0-16.0); Retic HGB Equivalent 33.3 pg (30.0-35.0); Reticulocyte Percent 1.4 % (0.5-1.8); Reticulocytes Absolute 0.069 X10*6/uL (0.026-0.095); White Blood Count 5.5 X10*3/uL (4.8-10.8)
[2024-08-05 12:18] LABS: Alanine Aminotransferase 20 U/L (0-40); Albumin Level 4.3 g/dL (3.5-5.0); Alkaline Phosphatase 66 U/L (39-117); Anion Gap 11 (12-20); Aspartate Amino Transferase 18 U/L (5-37); Bilirubin Total 0.4 mg/dL (0.0-1.0); Blood Urea Nitrogen 11 mg/dL (9-16); Calcium 9.6 mg/dL (8.4-10.2); Carbon Dioxide 26 mmol/L (22-29); Chloride 105 mmol/L (96-108); Cholesterol 259 mg/dL (<200); Estimated Glomerular Filt Rate > 60; Glucose Fasting 91 mg/dL (60-99); HDL Cholesterol 52 mg/dL (>40); LDL Cholesterol Calculated 174 mg/dL (<100); Potassium 3.5 mmol/L (3.3-5.1); Sodium 138 mmol/L (135-145); Total Protein 7.4 g/dL (6.5-8.0); Triglycerides 165 mg/dL (<150)
[2024-08-05 12:20] LABS: TSH reflex Free T4 1.13 uIU/mL (0.32-4.0); Vitamin D 25-OH Total 24.3 ng/mL (>30)
[2024-08-05 12:25] LABS: Prostate Specific Antigen Scr 0.33 ng/mL (<0.05-4.0)
[2024-08-05 14:14] LABS: Appearance Urine Clear; Color Urine Yellow; Glucose Urine UA Negative (Negative); Leukocyte Esterase Urine Negative (Negative); Nitrite Urine Negative (Negative); Urine Blood Negative (Negative); Urine Ketones Negative (Negative); Urine Protein Negative (Neg-Trace)
[2024-08-05 15:36] LABS: Creatinine Urine 193.05 mg/dL; Microalbum/Creatinine Ratio Ur 9.3 ug/mg cr (<30)
[2024-08-06 11:54] LABS: LDL Cholesterol Direct 178 mg/dL (<100)
== END 2024-08-05 09:38 | disposition home or self-care (01) ==
LOC: HO.WFDLDS 09:37
PROVIDERS: Visit Provider Family Medicine
DX: Z00.00 Encounter for general adult medical examination without abnormal findings (principal); I10 Essential (primary) hypertension; Z12.5 Encounter for screening for malignant neoplasm of prostate; E55.9 Vitamin D deficiency, unspecified; E78.5 Hyperlipidemia, unspecified; D64.9 Anemia, unspecified
CPT/HCPCS: 36415; 80053; 80061; 81003; 82043; 82306; 82570; 83721; 84153; 84443; 85025; 85045

== ENCOUNTER 2024-11-17 13:37 | Outpatient (AMB) | payer MEDICARE, MEDICAID, SELFPAY ==
--- NOTE | 2024-11-17 14:35 | MHC.OFFWIV ---
Intake Vital Signs 11/17/24 14:36 Height 5 ft 5 in Weight 161 lb BMI 26.8 BP 108/70 Blood Pressure Location Lt brachial Pulse 78 Pulse Source Pulse Oximeter Pulse Oximetry (%) 98 Oxygen Delivery Method Room Air Intake Visit Reasons: EP swollen lt eye Intake Note: Patient here for left eye swelling that started this morning. pt denies any pain, pressure or itching- he is blind out of that eye. Patient Tobacco Use Status: Never used Tobacco Allergies phenytoin [From Dilantin] Allergy (Mild, Verified 11/17/24 14:37) Unknown cephlasporins Allergy (Mild, Uncoded 11/17/24 14:37) Unknown Do you need a note to return to daycare/school/sports/work: No HPI HPI Comments History of Present Illness Details History of Present Illness The patient is a 49-year-old male presenting with eye swelling and inability to open the left eye. The problem was first noted upon awakening in the morning when the patient discovered significant swelling on the upper eyelid of the left eye. There was no associated pain, and the patient, who is blind in this eye, only noticed the issue when washing his hands. The patient reported some exudative material, specifically noting its presence as a greenish substance, though the eye was not crusted shut. There has been no prior treatment for this condition. Physical Exam General: Cooperative, healthy appearing, comfortable, no acute distress and well developed Orientation: Patient oriented x3 Limitations: blind in left eye Head: Normal to inspection Ears: Hearing grossly normal bilaterally Nose: Normal external nose present Face and sinus: Normal facial exam Eyes: Swollen upper lid on the left eye with greenish exudate present Neck: Normal visual inspection and Yes full ROM Respiratory: Normal respiratory effort and able to speak in complete sentences. Skin: No rashes or lesions noted Neuro: Patient oriented x3 Extremities: Normal to inspection [facility] Medical History Blindness of left eye Epilepsy Meningitis Surgical History H/O brain surgery Social History Household Members: Family Both parents involved: Yes Caregiver staying overnight: No Housing: Apartment Are you a primary inspector health care facilities to a significant other at home: No Do you presently have visiting nurse or other home services: No Alcohol intake: never Patient Tobacco Use Status: Never used Tobacco e-Cigarette/Vaping Use: Never Used service: No Current occupational status: disabled Cognitive needs: No Hearing needs: No Vision needs: Yes (Patient is blind in left eye.) Review of Systems Const All systems reviewed & are unremarkable except as noted in HPI and below Physical Exam Vital Signs: Last Vital Signs Pulse 78 11/17/24 14:36 BP 108/70 11/17/24 14:36 Pulse Ox 98 11/17/24 14:36 Oxygen Delivery Method Room Air 11/17/24 14:36 BMI result Body Mass Index 26.8 Assessment & Plan Assessment & Plan (1) Bacterial conjunctivitis of left eye: Code(s): H10.9 - Unspecified conjunctivitis Plan: Plan - Prescribe antibiotic ointment for the left eye to be applied four times daily while awake for a duration of seven days. - Educate the patient on the application of ointment to the inner eyelid water line, ensuring minimal contact with the applicator and the eye surface, with a suggested application amount of about half a centimeter per dose. - Advise the patient on the importance of hygiene to prevent recurrence, explaining the potential transmission routes for conjunctivitis. - Reassure the patient of expected improvement with treatment and discuss the choice of ointment over drops for better retention and distribution within the eye. Patient was informed and verbally consented to the use of an ambient scribe for clinic note documentation during this visit. Medications: New erythromycin Apply to left eye 4 times a day while awake 0.5 inches ophthalmic (eye) QID 3.5 grams 0RF Coding Level of Care Code Est Pt Level 3 (74694) Diagnoses Bacterial conjunctivitis of left eye H10.9
[2024-11-17 14:36] VITALS: BP 108/70; PULSE 78; O2SAT 98; BMI 26.8
== END 2024-11-17 15:03 | disposition home or self-care (01) ==
PROVIDERS: PCP Family Medicine; Visit Provider Physician Assistant
DX: H10.9 Unspecified conjunctivitis (principal)

== ENCOUNTER → 2024-11-17 13:37 | Outpatient (BNVA) | payer MEDICARE, MEDICAID, SELFPAY | PROVIDERS: PCP Family Medicine; Visit Provider Physician Assistant | DX: H10.32 Unspecified acute conjunctivitis, left eye (principal) | CPT/HCPCS: 99212 ==

== ENCOUNTER 2025-02-27 15:01 | Observation (INO) | payer MEDICARE, SELFPAY ==
--- NOTE | ~2025-02-27 | CT_ITS ---
EXAMINATION: CT ANGIOGRAM HEAD AND NECK CLINICAL INFORMATION: Right-sided weakness, difficulty speaking. COMPARISON: Noncontrast head CT dated earlier same day. No prior CT angiography. TECHNIQUE: CTA head and neck was performed by test bolus sequences and head and neck intravenous bolus administration 70 mL of opaque 350. Helical imaging was performed in the axial plane from the aortic arch to the skull vertex. The data was processed at the medical technologist chief's workstation for generation of MIP sequences. Angled MIPs and volume rendered reformatted images were also generated at an offline 3D workstation. Stenoses are assessed in accordance with NASCET criteria unless otherwise indicated. This CT examination was performed using dose optimization techniques as appropriate, variously including the following: *Automated exposure control *Adjustment of mA and/or kV according to patient size (this includes techniques or standardized protocols for targeted exams where dose is matched to indication/reason for exam; i.e. extremities or head) *Use of iterative reconstruction technique FINDINGS: NECK CTA: -AORTIC ARCH: Normal in caliber. Mild atheromatous calcification. Three-vessel branching pattern. -GREAT VESSEL ORIGINS: Widely patent. No stenosis. -RIGHT COMMON CAROTID ARTERY: Normal in course and caliber to the level of the bifurcation. -CERVICAL RIGHT INTERNAL CAROTID ARTERY: Normal in caliber into the skull base. Retropharyngeal course of the proximal aspect. -LEFT COMMON CAROTID ARTERY: Normal in course and caliber to the level of the bifurcation. -CERVICAL LEFT INTERNAL CAROTID ARTERY: Normal in course and caliber into the skull base. -CERVICAL RIGHT VERTEBRAL ARTERY: Patent origin. Normal in course and caliber into the skull base. -CERVICAL LEFT VERTEBRAL ARTERY: Mildly dominant. Patent origin. Normal in course and caliber into the skull base. OTHER, SOFT TISSUES: -No lymphadenopathy or mass. No abnormal fluid collection or soft tissue swelling. -Normal thyroid. -Imaged superior mediastinal structures normal. -Imaged lung apices clear. CTA OF THE BRAIN: -INTRACRANIAL INTERNAL CAROTID ARTERIES: Mild calcific atherosclerotic disease of the intracranial internal carotid arteries without occlusion or flow-limiting stenosis. -RIGHT ANTERIOR CEREBRAL ARTERY: Normal A1 segment.. Normal arborization of the distal segments. -LEFT ANTERIOR CEREBRAL ARTERY: Normal A1 segment.. Normal arborization of the distal segments. -ANTERIOR COMMUNICATING ARTERY: Normal. -RIGHT MIDDLE CEREBRAL ARTERY: Normal M1 segment of the MCA without focal stenosis or occlusion. Normal arborization of the distal segments inferior division. Superior division becomes oligemic in the distal branches in the region of prior encephalomalacia. -LEFT MIDDLE CEREBRAL ARTERY: Normal M1 segment of the MCA without focal stenosis or occlusion. Normal arborization of the distal segments. -RIGHT VERTEBRAL ARTERY V4: Normal in course and caliber. Normal PICA branch. -LEFT VERTEBRAL ARTERY V4: Normal in course and caliber. Normal PICA branch. -BASILAR ARTERY: Normal without focal stenosis or occlusion. Normal appearance of the proximal superior cerebellar arteries. Normal basilar tip. -RIGHT POSTERIOR CEREBRAL ARTERY: Normal P1 segment. Normal opacification of the distal FLEET MAINTENANCE FOREMAN segments. -LEFT POSTERIOR CEREBRAL ARTERY: Normal P1 segment. Normal opacification of the distal FLEET MAINTENANCE FOREMAN segments. -POSTERIOR COMMUNICATING ARTERIES: Small but present bilaterally. Normal opacification of the superior sagittal, straight, transverse, and sigmoid sinuses. No venous thrombosis. No space-occupying hemorrhage or definite evolving infarct. CT/CT angio head neck STROKE IMPRESSION: CTA NECK: 1. No evidence of major arterial dissection, significant stenosis, or occlusion. 2. Retropharyngeal course of the proximal right ICA. CTA HEAD: 1. No evidence of arterial vascular occlusion, significant stenosis, dissection, or aneurysm. 2. Superior division right MCA branches become oligemic/diminutive in the region of right frontal encephalomalacia. 3. Right frontal craniotomy with underlying right frontal encephalomalacia, as described on the noncontrast head CT. 4. No thrombosis of the major cortical or dural venous sinuses. No evolving infarct or space-occupying hemorrhage. Electronically signed by: Benjamin Del Rio MD 02/27/2025 03:59 PM EDT
--- NOTE | ~2025-02-27 | CT_ITS ---
EXAMINATION: CT HEAD WITHOUT CONTRAST (STROKE PROTOCOL) CLINICAL INFORMATION: Right-sided weakness. Concerning stroke. COMPARISON: No priors TECHNIQUE: Contiguous axial imaging was performed from the skull base to vertex without intravenous administration of contrast. This CT examination was performed using dose optimization techniques as appropriate, variously including the following: *Automated exposure control *Adjustment of mA and/or kV according to patient size (this includes techniques or standardized protocols for targeted exams where dose is matched to indication/reason for exam; i.e. extremities or head) *Use of iterative reconstruction technique DLP: 733 mg centimeter. FINDINGS: No acute intracranial hemorrhage, mass effect, midline shift, hydrocephalus or herniation. There is CSF effacement of the perimesencephalic cisterns. The cerebellar tonsils are in normal position of the foramen magnum. There is a macrocystic encephalomalacia in the right frontal opercular extending into right external capsule/subinsular and adjacent to a right frontal temporal craniectomy/cranioplasty. Macrocystic encephalomalacia in the frontal lobe involving the rectus and orbital frontal gyri more conspicuous in the left side. Extra-axial dilatation of the frontal horns lateral ventricles. Grade 1 matter differentiation is normal. Posterior cranial fossa contents demonstrated no intracranial hemorrhage . CT/CT head for STROKE IMPRESSION: No acute intracranial hemorrhage. No main cerebral artery occlusion on noncontrast CT. Concerning spontaneous intracranial hypotension in the correct clinical settings. This critical result was discussed with Dr. Westbrook at 3:28 PM hours on February 27, 2025.. It was ascertained that the content and urgency of the report was understood at the time of direct communication. Electronically signed by: Daniel Ibarra MD 02/27/2025 03:39 PM EDT
--- NOTE | 2025-02-27 15:11 | ED_ITS ---
HPI - General Adult General Chief complaint: Stroke Stated complaint: Diff Walking Slurred Speech Time Seen by Provider: 02/27/25 15:11 History of Present Illness ED Provider: Dariana FUNG narrative: The patient is a 49-year-old male who has a history of a traumatic brain injury as a child and also a history of a seizure disorder for which he is on lamotrigine. Apparently has a child he had a significant skull fracture and needed brain surgery with a large defect of the skull on the right side afterwards. The patient has been maintained on lamotrigine for many years. He used to live in [place]. He has been in this area for about 7 years. He has a primary care doctor but has never established a local neurologist and therefore has not seen a neurologist in several years. He lives with his father and mother. His father says that the patient might have had a seizure in bed about 6 months ago but otherwise has not had frequent seizures recently. Apparently last night the patient thought that he was feeling the aura of a possible seizure but did not have a seizure. It turns out he has not taken his lamotrigine for several weeks. his usual lamotrigine dose is 500 mg b.i.d.. Apparently the patient took 1000 mg of lamotrigine last night after he was concerned he was on the cusp of having a seizure. He took another 1000 mg this morning at around 10 or 11:00AM At around 14:00 this afternoon the patient had gone out with his father to go shopping at a grocery store. Apparently the patient developed an abrupt difficulty walking and possibly difficulty speaking as well. The father drove him to his PCP's office where they were advised to come to the emergency room. On arrival here the patient was made a code stroke. No significant headache. No fever, sweats, chills. The patient feels that he is profoundly unsteady on his feet. Related Data Home Medications ?Medication ?Instructions ?Recorded ?Confirmed ibuprofen 200 mg tablet (Advil) 800 mg PO Q6H 01/03/24 04/17/24 lamotrigine 150 mg tablet 150 mg PO BID 01/03/24 04/17/24 Previous Rx's ?Medication ?Instructions ?Recorded citalopram 20 mg tablet 20 mg PO DAILY 90 days #90 tabs 08/05/24 trazodone 100 mg tablet 100 mg PO BEDTIME PRN sleep 90 11/04/24 days #90 tabs erythromycin 5 mg/gram (0.5 %) eye 0.5 inch ophthalmic (eye) QID #3.5 11/17/24 ointment grams atorvastatin 40 mg tablet 40 mg PO DAILY 90 days #90 tabs 02/09/25 Allergies Allergy/AdvReac Type Severity Reaction Status Date / Time phenytoin [From Dilantin] Allergy Mild Unknown Verified 02/27/25 15:35 cephlasporins Allergy Mild Unknown Uncoded 11/17/24 14:37 Review of Systems 2 Review of Systems: Yes all other systems are reviewed and are negative [facility] Past Medical History Medical History Blindness of left eye Epilepsy Meningitis Surgical History H/O brain surgery Social History Social History Household Members: Family Housing: Apartment Are you a primary family day care worker to a significant other at home: No Do you presently have visiting nurse or other home services: No Alcohol intake: never Patient Tobacco Use Status: Never used Tobacco Smoked in Last 30 Days: No e-Cigarette/Vaping Use: Never Used Use of substances other than those prescribed or required for medical reasons: No Advance Directives: No Advance Directives Information Provided: Yes service: No Current occupational status: disabled Cognitive needs: No Hearing needs: No Vision needs: Yes (Patient is blind in left eye.) Physical Exam ED Vital Signs: Vital Signs - 24 hr 02/27/25 15:32 02/27/25 15:56 02/27/25 18:05 Temperature 98.0 F 98.2 F Pulse Rate 83 78 64 Respiratory Rate 18 15 16 Blood Pressure 112/71 119/78 114/81 Pulse Oximetry 93 97 98 Oxygen Delivery Method Room Air Room Air Room Air BMI result Body Mass Index 28.1 Const Other: The patient is a chronically ill-appearing male who was awake and alert. His speech was somewhat thick but comprehensible. He looked chronically ill and it was difficult to determine what aspects of his presentation were chronic and what were acute. He did not seem in pain or respiratory distress. HENMT Other: No definite facial asymmetry. Tongue is midline. Mucous membranes moist. Eyes Other: The patient is left eye deviates down into the left. This is apparently chronic and the patient is apparently completely blind in his left eye. The right eye has a round pupil with normal the patient has a significantly diminished visual field. He has a right-sided hemianopsia. This is apparently chronic Neck Other: neck is supple. Resp Effort & Inspection: normal respiratory effort Auscultation: clear to auscultation bilaterally Cardio Rate: regular rate Rhythm: regular rhythm Heart sounds: S1 normal heart sound present and S2 normal heart sound present GI Other: Abdomen is soft and nontender Skin Other: skin is dry and unremarkable Neuro Other: the patient is awake and alert. He is appropriately oriented. He has a right-sided hemianopsia that is apparently chronic. His has left eye exotropia that is apparently chronic. he says he has no vision in the left eye which is also chronic. Face is symmetrical. Tongue is midline. I found his speech quite fluent but the family says that he is normally much more fluent than he is speaking currently. He was telling jokes. He seems to have 5/5 strength in all extremities with no definite pronator drift. Finger-nose is normal bilaterally. he was unable to stand unassisted. Apparently normally he is a very good walker and walks quite normally and briskly. The patient's NIH stroke scale is 2 because of a right-sided hemianopsia but this is apparently chronic. The patient has primary neurological finding on my exam today is ataxia and inability to stand or walk. Medications Administered Discontinued Medications Generic Name Dose Route Start Last Admin Trade Name Anel PRN Reason Stop Dose Admin Aspirin 325 mg 02/27/25 16:42 02/27/25 18:04 Aspirin 325 Mg Tablet PO 02/27/25 16:43 325 mg ONCE ONE Administration Sodium Chloride 1,000 mls @ 999 mls/hr 02/27/25 16:15 02/27/25 17:45 Ns IV 02/27/25 17:15 Infused .Q1H1M POLLO Infusion Iohexol 100 ml 02/27/25 15:23 02/27/25 15:24 Iohexol 350 Mg/Ml 100 Ml Infus..Btl IV 02/27/25 15:24 70 ml ONCE ONE Administration Medical Decision Making Medical Decision Making [facility] Narrative: The patient is a 49-year-old male with a history of a significant brain injury as a child leaving him with a 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 He also has a history of a chronic right hemianopsia and complete blindness in his left eye. He also has a history of a seizure disorder. He presents with an abrupt onset of difficulty walking while at a grocery store today. He was brought to the hospital where he was made a code stroke. He is noncontrast head CT shows chronic findings but no acute findings. A CT angiogram of the head and neck shows no acute vascular process. The patient is not hypertensive. The patient disclosed that he had not taken his lamotrigine recently for a few weeks. The reason for this is not clear. He therefore took a double dose of his lamotrigine last night after having had an episode of what he thought might be an aura preceding a seizure. Took a double dose of lamotrigine earlier today at around 11:00AM. since the patient had presented with an acute change in his neurological status he was considered possibly to be having a stroke and was considered to potentially be a candidate for thrombolytic therapy. I therefore consulted Dr. Hernández of Neurology. it was his opinion that given the patient's history that the changes today are probably much more likely related to his seizure history and possibly his recent medication compliance changes that prompted today's condition. Therefore we agreed that the patient should not be given thrombolytic therapy but the hospital for further observation and consideration. Since the patient is essentially unable to walk on his own (he is normally able to walk quite well) he will be admitted for further observation. Lab Data 02/27/25 15:25 02/27/25 15:25 Labs: Lab Results 02/27/25 02/27/25 02/27/25 Range/Units 15:25 15:33 15:34 WBC 5.6 (4.8-10.8) X10*3/uL RBC 5.05 (4.60-5.80) X10*6/uL Hgb 14.4 (14.0-18.0) g/dl Hct 42.2 (42.0-52.0) % MCV 83.6 (80.0-98.0) fL MCH 28.5 (27.0-33.0) pg MCHC 34.1 (31.0-36.0) g/dl RDW 12.4 (11.0-16.0) % Plt Count 318 (160-400) X10*3/uL MPV 9.1 L (9.4-12.4) fL Immature Gran % (Auto) 0.2 (0.0-0.4) % Neut % (Auto) 47.9 (45-73) % Lymph % (Auto) 43.9 H (20-40) % [place] % (Auto) 6.1 (2-11) % Eos % (Auto) 1.4 (0-4) % Baso % (Auto) 0.5 (0-2) % Lymph # (Auto) 2.4 (1.2-4.9) X10*3/uL [place] # (Auto) 0.3 (0.1-1.2) X10*3/uL Eos # (Auto) 0.1 (0.0-0.4) X10*3/uL Baso # (Auto) 0.0 (0.0-0.2) X10*3/uL Abs Immat Gran (auto) 0.01 (0.00-0.03) X10*3/uL Absolute Neuts (auto) 2.7 (2.0-8.3) x10*3/uL Absolute Nucleated RBC 0.000 (0.0-0.012) X10*3/uL Nucleated RBC % (auto) 0.0 (0.0-0.2) /100WBC Hold Purple Top SEE NOTE PT 10.9 (10.9-12.4) SEC Whole Blood PT 11.7 (11.1-13.5) sec INR 0.9 (0.9-1.1) Whole Blood INR 1.0 (0.9-1.1) APTT 34.2 (26.0-36.8) SEC Sodium 139 (135-145) mmol/L Potassium 4.1 (3.3-5.1) mmol/L Chloride 105 (96-108) mmol/L Carbon Dioxide 26 (22-29) mmol/L Anion Gap 12 (12-20) BUN 13 (9-16) mg/dL Creatinine 0.86 (0.5-1.4) mg/dL Estim Creat Clear Calc 99.2 Estimated GFR > 60 POC Glucose 99 (60-115) mg/dL Random Glucose 96 (60-115) mg/dL Calcium 9.2 (8.4-10.2) mg/dL Troponin I High Sens < 2.7 (<3.5-35.0) ng/L Triglycerides 201 H (<150) mg/dL Cholesterol 221 H (<200) mg/dL LDL Cholesterol, Calc 129 H (<100) mg/dL HDL Cholesterol 52 (>40) mg/dL Salicylates (15-30) mg/dL Acetaminophen (<30) mcg/mL Ethyl Alcohol < 10 mg/dL 02/27/25 Range/Units 16:06 WBC (4.8-10.8) X10*3/uL RBC (4.60-5.80) X10*6/uL Hgb (14.0-18.0) g/dl Hct (42.0-52.0) % MCV (80.0-98.0) fL MCH (27.0-33.0) pg MCHC (31.0-36.0) g/dl RDW (11.0-16.0) % Plt Count (160-400) X10*3/uL MPV (9.4-12.4) fL Immature Gran % (Auto) (0.0-0.4) % Neut % (Auto) (45-73) % Lymph % (Auto) (20-40) % [place] % (Auto) (2-11) % Eos % (Auto) (0-4) % Baso % (Auto) (0-2) % Lymph # (Auto) (1.2-4.9) X10*3/uL [place] # (Auto) (0.1-1.2) X10*3/uL Eos # (Auto) (0.0-0.4) X10*3/uL Baso # (Auto) (0.0-0.2) X10*3/uL Abs Immat Gran (auto) (0.00-0.03) X10*3/uL Absolute Neuts (auto) (2.0-8.3) x10*3/uL Absolute Nucleated RBC (0.0-0.012) X10*3/uL Nucleated RBC % (auto) (0.0-0.2) /100WBC Hold Purple Top PT (10.9-12.4) SEC Whole Blood PT (11.1-13.5) sec INR (0.9-1.1) Whole Blood INR (0.9-1.1) APTT (26.0-36.8) SEC Sodium (135-145) mmol/L Potassium (3.3-5.1) mmol/L Chloride (96-108) mmol/L Carbon Dioxide (22-29) mmol/L Anion Gap (12-20) BUN (9-16) mg/dL Creatinine (0.5-1.4) mg/dL Estim Creat Clear Calc Estimated GFR POC Glucose (60-115) mg/dL Random Glucose (60-115) mg/dL Calcium (8.4-10.2) mg/dL Troponin I High Sens (<3.5-35.0) ng/L Triglycerides (<150) mg/dL Cholesterol (<200) mg/dL LDL Cholesterol, Calc (<100) mg/dL HDL Cholesterol (>40) mg/dL Salicylates < 5.0 L (15-30) mg/dL Acetaminophen < 3 (<30) mcg/mL Ethyl Alcohol mg/dL Critical Care Time Critical Care Time Critical Care Time: Yes Total Critical Care Time: 35 Attestation: The patient was critically ill with a high probability of imminent or life- threatening deterioration. I spent greater than 30 minutes of discontinuous time evaluating the patient, delivering critical care at the bedside, discussing evaluating data with consultants. Critical care time does not include time spent performing separately billable procedures or teaching. Time spent performing critical care with 35 minutes. Discharge Plan Discharge Clinical Impression: Difficulty walking, Seizure disorder Patient Disposition: Admitted As Inpatient
--- NOTE | 2025-02-27 15:13 | ECG_ITS ---
Test Reason : stroke protocol Blood Pressure : */* mmHG Vent. Rate : 77 BPM Atrial Rate : 77 BPM P-R Int : 166 ms QRS Dur : 98 ms QT Int : 380 ms P-R-T Axes : 58 97 67 degrees QTcB Int : 430 ms Normal sinus rhythm Rightward axis Borderline ECG No previous ECGs available Referred By: Trevor Westbrook Electronically Signed By: CHANTE DIAZ
[2025-02-27 15:16] VITALS: BMI 27.9
[2025-02-27] MEDS: iohexoL 350 MG/ML 100 ML INFUS..BTL IV (15:24)
[2025-02-27 15:32] VITALS: BP 112/71; PULSE 83; RESP 18; TEMP 36.7; O2SAT 93; BMI 28.1
[2025-02-27 15:36] LABS: MANUAL DIFF FLAG NO
[2025-02-27 15:38] LABS: Basophils Percent Auto 0.5 % (0-2); Eosinophils Absolute Auto 0.1 X10*3/uL (0.0-0.4); Eosinophils Percent Auto 1.4 % (0-4); Hematocrit 42.2 % (42.0-52.0); Hemoglobin 14.4 g/dl (14.0-18.0); Imm Gran Abs Auto 0.01 X10*3/uL (0.00-0.03); Imm Gran Pct Auto 0.2 % (0.0-0.4); Lymphocytes Absolute Auto 2.4 X10*3/uL (1.2-4.9); Lymphocytes Percent Auto 43.9 % (20-40); Mean Corpuscular HGB Conc 34.1 g/dl (31.0-36.0); Mean Corpuscular Hemoglobin 28.5 pg (27.0-33.0); Mean Corpuscular Volume 83.6 fL (80.0-98.0); Mean Platelet Volume 9.1 fL (9.4-12.4); Monocytes Absolute Auto 0.3 X10*3/uL (0.1-1.2); Monocytes Percent Auto 6.1 % (2-11); Neutrophils Absolute Auto 2.7 x10*3/uL (2.0-8.3); Neutrophils Percent Auto 47.9 % (45-73); Platelet Count 318 X10*3/uL (160-400); Red Blood Count 5.05 X10*6/uL (4.60-5.80); Red Cell Distribution Width 12.4 % (11.0-16.0); White Blood Count 5.6 X10*3/uL (4.8-10.8)
[2025-02-27 15:38] LABS: Prothrombin Time Whole Bld POC 11.7 sec (11.1-13.5)
[2025-02-27 15:39] LABS: Glucose, Whole Blood 99 mg/dL (60-115)
[2025-02-27 15:51] LABS: Anion Gap 12 (12-20); Blood Urea Nitrogen 13 mg/dL (9-16); Calcium 9.2 mg/dL (8.4-10.2); Carbon Dioxide 26 mmol/L (22-29); Chloride 105 mmol/L (96-108); Cholesterol 221 mg/dL (<200); Creatinine Clr Calc Pharmacy 99.2; Estimated Glomerular Filt Rate > 60; Ethanol < 10 mg/dL; Glucose Random 96 mg/dL (60-115); HDL Cholesterol 52 mg/dL (>40); LDL Cholesterol Calculated 129 mg/dL (<100); Potassium 4.1 mmol/L (3.3-5.1); Sodium 139 mmol/L (135-145); Triglycerides 201 mg/dL (<150)
[2025-02-27 15:53] LABS: INTERNATIONAL NORM RATIO 0.9 (0.9-1.1); Prothrombin Time 10.9 SEC (10.9-12.4)
[2025-02-27 15:56] VITALS: BP 119/78; PULSE 78; RESP 15; O2SAT 97
[2025-02-27 15:56] LABS: Partial Thromboplastin Time 34.2 SEC (26.0-36.8)
[2025-02-27 15:57] LABS: Troponin-I High Sensitivity < 2.7 ng/L (<3.5-35.0)
[2025-02-27] MEDS: 0.9 % Sodium Chloride 1,000 ML 999 ML IV (16:14)
[2025-02-27 16:24] LABS: Stroke Lab Use COMPLETE
[2025-02-27 16:28] LABS: Acetaminophen LAB < 3 mcg/mL (<30); Salicylate < 5.0 mg/dL (15-30)
--- NOTE | 2025-02-27 16:29 | PC.NURSE ---
pt is unable to walk. with two assists he was very off balance and said he was going to fall. he has limited vision - completely blind in his left eye and no peripheral vision in his right. he is able to follow commands and answer questions. he is slower to respond than usual, according to his dad. his left hand and arm are stiff and slightly contracted. initially pt did have trouble bending his left arm to take off his shirt.
--- OUTSIDE RECORDS SUMMARY | 2025-02-27 17:00 | XMS_ITS | Encounter Summary ---
Author Organization [employer] Address [address] [facility] [address] [place] [address] Care Team Providers Care Jordan Man Name Role Phone Unavailable Primary Care Provider Unavailabl e Encounter Details Date Type Department Care Team (Latest Contact Info) Description 2019 Abstract C CONVERSIONS Dental, Provider, DDS Social History Tobacco Use Types Packs/Day Years Used Date Smoking Tobacco: Never Assessed Sex and Gender Information Value Date Recorded Sex Assigned at Male 09/25/2022 10:34 AM EDT Legal Sex Male 10:34 AM EDT Gender Identity Male 09/25/2022 10:34 AM EDT Sexual Orientation Straight 09/25/2022 10 :34 AM EDT documented as of this encounter Plan of Treatment Not on file documented as of this encounter Visit Diagnoses Not on filedocumented in this encounter
--- OUTSIDE RECORDS SUMMARY | 2025-02-27 17:00 | XMS_ITS | Clinical Summary ---
Author Organization [employer] Address [address] [place] [address] [address] [place] [address] Care Team Providers Care Binding [employer] Name Role Phone Unavailable Primary Care Provider Unavailabl e Social History Tobacco Use Types Packs/Day Years Used Date Smoking Tobacco: Never Assessed Sex and Gender Information Value Date Recorded Sex Assigned at Male 09/25/2022 10:34 AM EDT Legal Sex Male 10:34 AM EDT Gender Identity Male 09/25/2022 10:34 AM EDT Sexual Orientation Straight 09/25/2022 10 :34 AM EDT Plan of Treatment Health Maintenance Due Date Last Done Comments CT Colonography 1975 Colonoscopy 1975 Colorectal Cancer Screening 1975 Depression Screening 1975 FIT DNA/Cologuard 1975 FIT 1975 FOBT 1975 Lipid Panel 1975 Sigmoidoscopy 1975 Alcohol/Substance Use Screening 1987 Tobacco Screening 1987 Family Planning (PISQ) 1990 DTaP/Tdap/Td Vaccines (1 - Tdap) 1994 Hepatitis B Vaccines (1 of 3 - 19+ 3-dose series) 1994 COVID-19 Vaccine (1 - 2023-2 5 season) 2024 Influenza Vaccine (#1) 2024 Zoster Vaccines (1 of 2) 2025 RSV Patients and Pa tients Aged 60 years or older (1 - 1-dose 75+ series) 2050 HIB Vaccines Aged Out No longer eligi ble based on patient's age to complete this topic HPV Vaccines Aged Out No longer eligi ble based on patient's age to complete this topic Hepatitis A Vaccines Aged Out No long er eligible based on patient's age to complete this topic IPV Vaccines Aged Out No longer eligi ble based on patient's age to complete this topic Meningococcal Vaccine Aged Out No janee jimi eligible based on patient's age to complete this topic Pneumococcal Vaccine: Pediat rics (0 to 5 Years) and At-Risk Patients (6 to 49) Years) Aged Out No longer eligible b ased on patient's age to complete this topic RSV under 20 months Aged Out No longe r eligible based on patient's age to complete this topic Rotavirus Vaccines Aged Out No longer eligible based on patient's age to complete this topic
--- NOTE | 2025-02-27 17:18 | PM.IMHP ---
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 Pt reports he was at the store with his father shopping this afternoon when he suddenly found that he was unable to walk and had difficulty speaking. Pt reports he felt dizzy and that there was a disconnect between his brains in his legs rather than his legs were weak. Denies headache, acute vision changes, facial droop, or hemiparesis. Denies any similar episode in the past. Pt has long hx of seizure disorder with last seizure over 6 months ago and supposed to be on lamotrigine 300 mg b.i.d.. Pt is very vague on details, but for reasons that are not entirely clear, reports he stopped taking his lamotrigine sometime ago possibly sometime in September. Last night pt felt like he was having ?mini seizures? that threatened to become full-blown tonic-clonic seizures if he leaned forward too much. Pt then took lamotrigine 600 mg last night to prevent seizure. This morning pt again felt an aura and took an additional 600 mg lamotrigine. Denies shortness or breath or difficulty breathing. No cough. Denies fever, chills, nausea, vomiting, abdominal pain. No chest pain/pressure, palpitations. In the ED patient's symptoms improved, but was unable to stand or ambulate unassisted. Brother is at bedside who states pt is speaking better than before, but not yet back to baseline. Pt apparently is a very active at home and normally walks over 14,000 steps and 8 miles a day. In the ED pt's vitals were stable and WNL. Labs were significant for elevated lipid profile, otherwise grossly unremarkable around baseline for pt. No leukocytosis. Stable H&H. No significant electrolyte abnormalities. Renal function baseline. Troponin negative. Lamotrigine levels pending. CT?of head showing chronic changes but without acute intracranial hemorrhage, mass effect, midline shift, hydrocephalus, or herniation. CTA of head and neck negative for acute occlusion, stenosis, dissection, or aneurysm. EKG demonstrated normal sinus rhythm without evidence of significant ST elevations or depressions. ED clinician reached out to Neurology who recommended against TNK and suggested pt be admitted for observation. Pt was treated with aspirin and IVF. Pt will be admitted to the hospital under observation for treatment and further evaluation of ataxia concerning for lamotrigine toxicity. Review of Systems Review of Systems: Negative except for that which is stated in the HPI. [facility] Medical History Blindness of left eye Epilepsy Meningitis Surgical History H/O brain surgery Social History Household Members: Family Housing: Apartment Are you a primary personal care assistant to a significant other at home: No Do you presently have visiting nurse or other home services: No Alcohol intake: never Patient Tobacco Use Status: Never used Tobacco e-Cigarette/Vaping Use: Never Used service: No Current occupational status: disabled Cognitive needs: No Hearing needs: No Vision needs: Yes (Patient is blind in left eye.) Meds Allergies Allergy/AdvReac Type Severity Reaction Status Date / Time phenytoin [From Dilantin] Allergy Mild Unknown Verified 02/27/25 15:35 cephlasporins Allergy Mild Unknown Uncoded 11/17/24 14:37 Home Medications ?Medication ?Instructions ?Recorded ?Confirmed ?Last Taken ?Type ibuprofen 200 mg tablet (Advil) 800 mg PO Q6H 01/03/24 04/17/24 Unknown History lamotrigine 150 mg tablet 150 mg PO BID 01/03/24 04/17/24 Unknown History Physical Exam Vital Signs and Narrative: Vital Signs: Last Vital Signs Temp 98.0 F 02/27/25 15:32 Pulse 78 02/27/25 15:56 Resp 15 02/27/25 15:56 BP 119/78 02/27/25 15:56 Pulse Ox 97 02/27/25 15:56 O2 Del Method Room Air 02/27/25 15:56 BMI result Body Mass Index 28.1 General: AOx3, no acute distress Resp: CTA bilaterally CVS: S1, S2, RRR GI: +BS, NT, no distention Skin: Warm, dry Neuro: Chronic left eye extropia, right eye peripheral vision deficit. No facial droop noted. Sensation to light touch intact of face, upper and lower extremities bilaterally. Negative pronator drift. Strength intact and symmetric of upper and lower extremities bilaterally. Extremities: No edema Psych: Appropriate affect Results Labs 02/27/25 15:25 02/27/25 15:25 Labs: Laboratory Results - last 24 hr 02/27/25 02/27/25 02/27/25 15:25 15:33 15:34 MCV 83.6 MCH 28.5 MCHC 34.1 RDW 12.4 Plt Count 318 MPV 9.1 L Immature Gran % (Auto) 0.2 Neut % (Auto) 47.9 Lymph % (Auto) 43.9 H [place] % (Auto) 6.1 Eos % (Auto) 1.4 Baso % (Auto) 0.5 Lymph # (Auto) 2.4 [place] # (Auto) 0.3 Eos # (Auto) 0.1 Baso # (Auto) 0.0 Abs Immat Gran (auto) 0.01 Absolute Neuts (auto) 2.7 Absolute Nucleated RBC 0.000 Nucleated RBC % (auto) 0.0 Hold Purple Top SEE NOTE PT 10.9 Whole Blood PT 11.7 INR 0.9 Whole Blood INR 1.0 APTT 34.2 Anion Gap 12 Estim Creat Clear Calc 99.2 Estimated GFR > 60 POC Glucose 99 Random Glucose 96 Calcium 9.2 Triglycerides 201 H Cholesterol 221 H LDL Cholesterol, Calc 129 H HDL Cholesterol 52 Salicylates Acetaminophen Ethyl Alcohol < 10 02/27/25 16:06 MCV MCH MCHC RDW Plt Count MPV Immature Gran % (Auto) Neut % (Auto) Lymph % (Auto) [place] % (Auto) Eos % (Auto) Baso % (Auto) Lymph # (Auto) [place] # (Auto) Eos # (Auto) Baso # (Auto) Abs Immat Gran (auto) Absolute Neuts (auto) Absolute Nucleated RBC Nucleated RBC % (auto) Hold Purple Top PT Whole Blood PT INR Whole Blood INR APTT Anion Gap Estim Creat Clear Calc Estimated GFR POC Glucose Random Glucose Calcium Triglycerides Cholesterol LDL Cholesterol, Calc HDL Cholesterol Salicylates < 5.0 L Acetaminophen < 3 Ethyl Alcohol Imaging Radiologist's Impressions: Impressions Head CT 02/27/25 15:11 IMPRESSION: No acute intracranial hemorrhage. No main cerebral artery occlusion on noncontrast CT. Concerning spontaneous intracranial hypotension in the correct clinical settings. This critical result was discussed with Dr. Westbrook at 3:28 PM hours on February 27, 2025.. It was ascertained that the content and urgency of the report was understood at the time of direct communication. Electronically signed by: Daniel Ibarra MD 02/27/2025 03:39 PM EDT RP Head/Neck CTA 02/27/25 15:12 IMPRESSION: CTA NECK: 1. No evidence of major arterial dissection, significant stenosis, or occlusion. 2. Retropharyngeal course of the proximal right ICA. CTA HEAD: 1. No evidence of arterial vascular occlusion, significant stenosis, dissection, or aneurysm. 2. Superior division right MCA branches become oligemic/diminutive in the region of right frontal encephalomalacia. 3. Right frontal craniotomy with underlying right frontal encephalomalacia, as described on the noncontrast head CT. 4. No thrombosis of the major cortical or dural venous sinuses. No evolving infarct or space-occupying hemorrhage. 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 Pt will be admitted to the hospital under observation for treatment and further evaluation of ataxia concerning for lamotrigine toxicity. Ataxia Pt with dizziness, difficulty ambulating, difficulty speaking this afternoon CT and CTA of head/neck negative for acute abnormalities Pt reports taking lamotrigine 600 mg last night and again this morning Stopped taking lamotrigine on his own months ago, previously on 300mg bid Concern for lamotrigine toxicity vs seizure disorder vs TIA Lamotrigine levels pending Hold lamotrigine for now Will hold on MRI pending Neurology input Neurology consult Monitor on telemetry Seizure precautions HLD Continue statin Mood disorder Continue citalopram Insomnia Continue trazodone Full Code Attending:?Dr. Shetty DVT Prophylaxis: Lovenox Pt will be admitted to the hospital under observation for treatment and further evaluation of ataxia concerning for lamotrigine toxicity vs seizure disorder vs TIA. Quality Stroke Does the patient have a stroke diagnosis?: No VTE Prior VTE?: No VTE Risk Level:: Medical - moderate - high VTE Device Contraindication: Treatment Not Indicated VTE Drug Contraindication: N/A - Med Ordered
[2025-02-27] MEDS: Aspirin 325 MG TABLET PO (18:04)
[2025-02-27 18:05] VITALS: BP 114/81; PULSE 64; RESP 16; TEMP 36.8; O2SAT 98
--- NOTE | 2025-02-27 18:09 | PC.NURSE ---
pts initial difficulty with word finding/response time has improved his speech si quicker and closer to baseline. VSS all WNL. Swallow screen pass
[2025-02-27] MEDS: Enoxaparin Sodium 40 MG/0.4 ML SYRINGE SUBCUT (19:35)
--- NOTE | 2025-02-27 21:08 | PHA.MEDREC ---
Addendum entered by Laron Hamilton [facility] 02/27/25 21:16: med rec reviewed Original Note: Pharmacy Consult ? Medication Reconciliation Pharmacy has completed the medication reconciliation. Spoke with patient and he was able to confirm his medications but stated he is not compliant with taking his medications. Patient confirmed he never started taking the Atorvastatin 40mg tab and stated he was suppose to talk to his Dr first about starting it but the Dr never got in touch with him and so he never started it. He also confirmed he takes the Citalopram 20mg tab once in a while for his mood and states he last took 2 tabs (40mg). He also confirmed he started taking the Lamotrigine 150mg tab again yesterday due to some mini seizures the patient was experiencing and stated he took 4 tablets (600mg) last night and this morning and then decided to come into the ED for complications.
--- NOTE | 2025-02-27 21:18 | PC.NURSE ---
Took over care from INDERJIT Hamilton, pt resting in bed, no sign of distress, pt able to speak in full sentences and answer questions appropriately.
--- NOTE | 2025-02-27 22:32 | PC.NURSE ---
bilateral upper and lower extremities movements are equal
--- NOTE | 2025-02-27 23:48 | PC.NURSE ---
Pt sleeping, seizure precautions in place
[2025-02-28] MEDS: 0.9 % Sodium Chloride Flush 3 ML SYRINGE IVFLUSH ×2 (02:14→09:30)
--- NOTE | 2025-02-28 02:25 | PC.NURSE ---
provided pt with water
--- NOTE | 2025-02-28 04:16 | PC.NURSE ---
Assist at the bedside with urinal, pt given call strickland
[2025-02-28 07:43] VITALS: BP 115/72; PULSE 76; RESP 15; TEMP 36.7; O2SAT 95
--- NOTE | 2025-02-28 07:52 | PC.NURSE ---
Assumed care of pt at 0700. Resting in bed quietly, a/ox3, speaking in full sentences, no slurred speech/facial droop noted, respirations even and unlabored, no increased wob/sob noted, denies cp/sob, nsr on fibre technologist, HR- 70s. Pt sitting up in bed, vitals taken and updated in worklist. Seizure precautions in place, call strickland within reach, all needs met at this time.
[2025-02-28] MEDS: Atorvastatin Calcium 40 MG TABLET PO (09:26)
[2025-02-28] MEDS: Escitalopram Oxalate 10 MG TABLET PO (09:26)
--- NOTE | 2025-02-28 11:14 | P.CNNE_ITS ---
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 Originally from [place], he moved to this area few years ago and was following his primary care physician for seizure medicines. According to his father, as far as he was taking his medicines regularly he seizures were control. Sometime he missed doses, which could result in breakthrough seizure. Apparently this time he missed some doses and then took double dose of lamotrigine before he came to hospital. Also his seizures would typically cause left-sided weakness for a day afterwards. Typical seizures included few sec of an odd feeling leading to grand-mal seizure. He came to hospital with unsteadiness and left-sided weakness and was initially evaluated for possible stroke. Review of Systems 2 Review of Systems: No recent cold or flu-like illness PMFSH Past Medical History Medical History Blindness of left eye Epilepsy Meningitis Surgical History Surgical History H/O brain surgery Social History Social History Household Members: Family Housing: Apartment Are you a primary lawn care professional to a significant other at home: No Do you presently have visiting nurse or other home services: No Alcohol intake: never Patient Tobacco Use Status: Never used Tobacco Smoked in Last 30 Days: No e-Cigarette/Vaping Use: Never Used Use of substances other than those prescribed or required for medical reasons: No Advance Directives: No Advance Directives Information Provided: Yes Nutrition Risks: No Nutritional Risk service: No Current occupational status: disabled Cognitive needs: No Hearing needs: No Vision needs: Yes (Patient is blind in left eye.) Meds Allergies Allergy/AdvReac Type Severity Reaction Status Date / Time phenytoin [From Dilantin] Allergy Mild Unknown Verified 02/27/25 15:35 cephlasporins Allergy Mild Unknown Uncoded 11/17/24 14:37 Active Medications: Current Medications Acetaminophen (Acetaminophen 325 Mg Tablet) 650 mg PO Q6H PRN PRN Reason: Pain, Mild 1-3,fever,headache Atorvastatin Calcium (Atorvastatin Calcium 40 Mg Tablet) 40 mg PO DAILY [facility] Last Admin: 02/28/25 09:26 Dose: 40 mg Calcium Carbonate (Calcium Carbonate 750 Mg Tab.Chew) 750 mg PO Q4H PRN PRN Reason: Heartburn Enoxaparin Sodium (Enoxaparin Sodium 40 Mg/0.4 Ml Syringe) 40 mg SUBCUT Q24H [facility]1983 Last Admin: 02/27/25 19:35 Dose: 40 mg Escitalopram Oxalate (Escitalopram Oxalate 10 Mg Tablet) 10 mg PO DAILY [facility] Last Admin: 02/28/25 09:26 Dose: 10 mg Magnesium Hydroxide (Milk Of Magnesia 30 Ml Oral.Susp) 30 ml PO DAILY PRN PRN Reason: Constipation Melatonin (Melatonin 3 Mg Tablet) 6 mg PO BEDTIME PRN PRN Reason: Insomnia Ondansetron HCl (Ondansetron Hcl 4 Mg/2 Ml Vial) 4 mg IVPUSH Q8H PRN PRN Reason: Nausea and Vomiting Sodium Chloride (0.9 % Sodium Chloride Flush 3 Ml Syringe) 3 ml IVFLUSH QSHIFT [facility] Last Admin: 02/28/25 09:30 Dose: 3 ml Trazodone HCl (Trazodone Hcl 100 Mg Tablet) 100 mg PO BEDTIME PRN PRN Reason: sleep Home Medications ?Medication ?Instructions ?Recorded ?Confirmed ?Last Taken ?Type ibuprofen 200 mg tablet (Advil) 400 - 600 mg PO Q6H PRN Pain 01/03/24 02/27/25 Unknown History lamotrigine 150 mg tablet 300 mg PO BID 01/03/24 02/27/25 02/27/25 History 600 mg atorvastatin 40 mg tablet 40 mg PO DAILY 02/27/25 02/27/25 Unknown History Physical Exam 2 Vital Signs: Vital Signs: Last Vital Signs Temp 98.0 F 02/28/25 07:43 Pulse 76 02/28/25 07:43 Resp 15 02/28/25 07:43 BP 115/72 02/28/25 07:43 Pulse Ox 95 02/28/25 07:43 O2 Del Method Room Air 02/28/25 07:43 BMI result Body Mass Index 28.1 Neuro: Other: He is alert and awake with normal spontaneity and fluency of speech. Comprehension is intact. Left eye is deviated to the left and blind. Right eye vision is limited. Face seems symmetrical. He is moving all 4 extremities. Deep tendon reflexes are 2 to 3+ in legs with equivocal plantars. Left-sided reflexes are brisker. Results Labs 02/27/25 15:25 02/27/25 15:25 Labs: Short CBC 02/27/25 Range/Units 15:25 WBC 5.6 (4.8-10.8) X10*3/uL Hgb 14.4 (14.0-18.0) g/dl Hct 42.2 (42.0-52.0) % Plt Count 318 (160-400) X10*3/uL BMP 02/27/25 15:25 Sodium 139 Potassium 4.1 Chloride 105 Carbon Dioxide 26 BUN 13 Creatinine 0.[address] revealed large area of right parietal and smaller left frontal encephalomalacia. There was evidence of craniotomy. CTA did not reveal any vascular stenosis. 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 From original injury in childhood, he lost vision in left eye. His head CT revealed large area of encephalomalacia and right parietal lobe and also in left frontal lobe. There was evidence of craniotomy. He took extra dose of lamotrigine because he had missed some doses resulting in encephalopathy. My recommendation is to put him back on lamotrigine 300 mg twice a day, his regular dose. Family should make some kind of arrangement that there is a mechanism in place for him to take right dose on regular basis. Procedures Date of Service Date of Service: 02/28/25
--- NOTE | 2025-02-28 12:38 | PM.DS ---
DS: Providers Provider Date of Service: 02/28/25 Date of admission: 02/27/25 18:06 Date of discharge: 02/28/25 Primary care physician: Dale Odom MD Consults: 02/27/25 18:11 Consult to Neurology Routine Consulting Provider: [facility] Reason for consultation: Ataxia concern for lamotrigine toxicity DS: Diagnosis Discharge Diagnosis (1) Seizure disorder: Status: Acute (2) Ataxia: Status: Acute (3) Toxic encephalopathy: Status: Acute DS: Summary Hospital Course Hospital Course: From the history and physical by the admitting hospitalist, KAREN Fitzpatrick, 02/27/25: Pt is a 49-year-old male with a PMH significant for?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 Pt reports he was at the store with his father shopping this afternoon when he suddenly found that he was unable to walk and had difficulty speaking. Pt reports he felt dizzy and that there was a disconnect between his brains in his legs rather than his legs were weak. Denies headache, acute vision changes, facial droop, or hemiparesis. Denies any similar episode in the past. Pt has long hx of seizure disorder with last seizure over 6 months ago and supposed to be on lamotrigine 300 mg b.i.d.. Pt is very vague on details, but for reasons that are not entirely clear, reports he stopped taking his lamotrigine sometime ago possibly sometime in September. Last night pt felt like he was having ?mini seizures? that threatened to become full-blown tonic-clonic seizures if he leaned forward too much. Pt then took lamotrigine 600 mg last night to prevent seizure. This morning pt again felt an aura and took an additional 600 mg lamotrigine. Denies shortness or breath or difficulty breathing. No cough. Denies fever, chills, nausea, vomiting, abdominal pain. No chest pain/pressure, palpitations. In the ED patient's symptoms improved, but was unable to stand or ambulate unassisted. Brother is at bedside who states pt is speaking better than before, but not yet back to baseline. Pt apparently is a very active at home and normally walks over 14,000 steps and 8 miles a day. In the ED pt's vitals were stable and WNL. Labs were significant for elevated lipid profile, otherwise grossly unremarkable around baseline for pt. No leukocytosis. Stable H&H. No significant electrolyte abnormalities. Renal function baseline. Troponin negative. Lamotrigine levels pending. CT?of head showing chronic changes but without acute intracranial hemorrhage, mass effect, midline shift, hydrocephalus, or herniation. CTA of head and neck negative for acute occlusion, stenosis, dissection, or aneurysm. EKG demonstrated normal sinus rhythm without evidence of significant ST elevations or depressions. ED clinician reached out to Neurology who recommended against TNK and suggested pt be admitted for observation. Pt was treated with aspirin and IVF. Pt will be admitted to the hospital under observation for treatment and further evaluation of ataxia concerning for lamotrigine toxicity. He was admitted to the hospitalist service with Neurology consultation. 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 Originally from [place], he moved to this area few years ago and was following his primary care physician for seizure medicines. According to his father, as far as he was taking his medicines regularly he seizures were control. Sometime he missed doses, which could result in breakthrough seizure. Apparently this time he missed some doses and then took double dose of lamotrigine before he came to hospital. Also his seizures would typically cause left-sided weakness for a day afterwards. Typical seizures included few sec of an odd feeling leading to grand-mal seizure. He came to hospital with unsteadiness and left-sided weakness and was initially evaluated for possible stroke... 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 From original injury in childhood, he lost vision in left eye. His head CT revealed large area of encephalomalacia and right parietal lobe and also in left frontal lobe. There was evidence of craniotomy. He took extra dose of lamotrigine because he had missed some doses resulting in encephalopathy. My recommendation is to put him back on lamotrigine 300 mg twice a day, his regular dose. Family should make some kind of arrangement that there is a mechanism in place for him to take right dose on regular basis. As his ataxia and slurred speech and encephalopathy resolved, he was discharged home with instructions to resume lamotrigine 300 mg bid and to not miss or double up on doses. Outpatient follow-up with Neurology could be considered. Time Attestation Discharge Coordination Time (in mins): 35 Quality: Safe Use of Opioids Does Pt have an Active Cancer Diagnosis on the Problem List?: No Quality: Stroke Does the patient have a stroke diagnosis?: No Physical Exam Vital Signs: Vital Signs: Last Vital Signs Temp 98.0 F 02/28/25 07:43 Pulse 76 02/28/25 07:43 Resp 15 02/28/25 07:43 BP 115/72 02/28/25 07:43 Pulse Ox 95 02/28/25 07:43 O2 Del Method Room Air 02/28/25 07:43 BMI result Body Mass Index 28.1 Gen: in no acute distress HEENT: L eye exotropia + blind, sclera anicteric, moist mucus membranes Neck: supple Lungs: clear to auscultation bilaterally Heart: regular rate and rhythm, no murmurs Abd: soft, non-tender, non-distended Ext: no edema Skin: warm/well-perfused Neuro: alert and oriented x3, no focal findings Psych: appropriate affect DS: Data Data Completed and Pending Completed studies during hospitalization [Text1]: Laboratory Results WBC 5.6 X10*3/uL (4.8-10.8) 02/27/25 15: RBC 5.05 X10*6/uL (4.60-5.80) 02/27/25 15:25 Hgb 14.4 g/dl (14.0-18.0) 02/27/25 15: Hct 42.2 % (42.0-52.0) 02/27/25 15:25 MCV 83.6 fL (80.0-98.0) 02/27/25 15:25 MCH 28.5 pg (27.0-33.0) 02/27/25 15: MCHC 34.1 g/dl (31.0-36.0) 02/27/25 15: RDW 12.4 % (11.0-16.0) 02/27/25 15: Plt Count 318 X10*3/uL (160-400) 02/27/25 15: MPV 9.1 fL (9.4-12.4) L 02/27/25 15:25 Immature Gran % (Auto) 0.2 % (0.0-0.4) 02/27/25 15:25 Neut % (Auto) 47.9 % (45-73) 02/27/25 15:25 Lymph % (Auto) 43.9 % (20-40) H 02/27/25 15:25 [place] % (Auto) 6.1 % (2-11) 02/27/25 15:25 Eos % (Auto) 1.4 % (0-4) 02/27/25 15:25 Baso % (Auto) 0.5 % (0-2) 02/27/25 15: Lymph # (Auto) 2.4 X10*3/uL (1.2-4.9) 02/27/25: [place] # (Auto) 0.3 X10*3/uL (0.1-1.2) 02/27/25: Eos # (Auto) 0.1 X10*3/uL (0.0-0.4) 02/27/25:25 Baso # (Auto) 0.0 X10*3/uL (0.0-0.2) 02/27/25 15: Abs Immat Gran (auto) 0.01 X10*3/uL (0.00-0.03) 02/27/25: Absolute Neuts (auto) 2.7 x10*3/uL (2.0-8.3) 02/27/25: Absolute Nucleated RBC 0.000 X10*3/uL (0.0-0.012) 02/27/25: Nucleated RBC % (auto) 0.0 /100WBC (0.0-0.2) 02/27/25 15: Hold Purple Top SEE NOTE 02/27/25:25 PT 10.9 SEC (10.9-12.4) 02/27/25: Whole Blood PT 11.7 sec (11.1-13.5) 02/27/25: INR 0.9 (0.9-1.1) 02/27/25 15: Whole Blood INR 1.0 (0.9-1.1) 02/27/25 15:34 APTT 34.2 SEC (26.0-36.8) 02/27/25 15:25 Sodium 139 mmol/L (135-145) 02/27/25 15:25 Potassium 4.1 mmol/L (3.3-5.1) 02/27/25 15:25 Chloride 105 mmol/L (96-108) 02/27/25 15:25 Carbon Dioxide 26 mmol/L (22-29) 02/27/25 15:25 Anion Gap 12 (12-20) 02/27/25 15:25 BUN 13 mg/dL (9-16) 02/27/25 15:25 Creatinine 0.86 mg/dL (0.5-1.4) 02/27/25 15:25 Estim Creat Clear Calc 99.2 02/27/25 15:25 Estimated GFR > 60 02/27/25 15:25 POC Glucose 99 mg/dL (60-115) 02/27/25 15:33 Random Glucose 96 mg/dL (60-115) 02/27/25 15:25 Calcium 9.2 mg/dL (8.4-10.2) 02/27/25 15:25 Troponin I High Sens < 2.7 ng/L (<3.5-35.0) 02/27/25 15:25 Triglycerides 201 mg/dL (<150) H 02/27/25 15:25 Cholesterol 221 mg/dL (<200) H 02/27/25 15:25 LDL Cholesterol, Calc 129 mg/dL (<100) H 02/27/25 15:25 HDL Cholesterol 52 mg/dL (>40) 02/27/25 15:25 Salicylates < 5.0 mg/dL (15-30) L 02/27/25 16:06 Acetaminophen < 3 mcg/mL (<30) 02/27/25 16:06 Ethyl Alcohol < 10 mg/dL 02/27/25 15:[address] 02/27/25 15:11 IMPRESSION: No acute intracranial hemorrhage. No main cerebral artery occlusion on noncontrast CT. Concerning spontaneous intracranial hypotension in the correct clinical settings. This critical result was discussed with Dr. Westbrook at 3:28 PM hours on February 27, 2025.. It was ascertained that the content and urgency of the report was understood at the time of direct communication. Electronically signed by: Daniel Ibarra MD 02/27/2025 03:39 PM EDT RP Head/Neck CTA 02/27/25 15:12 IMPRESSION: CTA NECK: 1. No evidence of major arterial dissection, significant stenosis, or occlusion. 2. Retropharyngeal course of the proximal right ICA. CTA HEAD: 1. No evidence of arterial vascular occlusion, significant stenosis, dissection, or aneurysm. 2. Superior division right MCA branches become oligemic/diminutive in the region of right frontal encephalomalacia. 3. Right frontal craniotomy with underlying right frontal encephalomalacia, as described on the noncontrast head CT. 4. No thrombosis of the major cortical or dural venous sinuses. No evolving infarct or space-occupying hemorrhage. Electronically signed by: Benjamin Del Rio MD 02/27/2025 03:59 PM EDT RP Discharge Plan Discharge Patient Disposition: Home, Self-Care Discharge Diagnosis: seizure disorder excess lamotrigine Referrals: Dale Odom MD [Primary Care Provider] - 1 Week Joseph Hernández MD [Physician] - 1 Month Discharge Medications: Continued trazodone 100 mg tablet 100 mg PO BEDTIME PRN (Reason: sleep) 90 Days Qty: 90 3RF atorvastatin 40 mg tablet 40 mg PO DAILY citalopram 20 mg tablet 20 mg PO DAILY 90 Days Qty: 90 3RF lamotrigine 150 mg tablet 300 mg PO BID ibuprofen [Advil] 200 mg tablet 400 - 600 mg PO Q6H PRN (Reason: Pain) Discharge Orders: Discharge Order (Routine); Ordered 02/28/25 Ordered By: Felicia Shetty Diet: Advance to usual diet Activity on Discharge: As tolerated Stand Alone Forms: Patient Portal Discharge page Print Language: [place]i Care Plan Goals: seizure control Health Concerns: seizure disorder excess lamotrigine Plan of Treatment: take lamotrigine 300 mg twice daily and do not miss or double up on doses consider outpatient neurology follow-up in 1 month Assessment: See Discharge Summary.
[2025-02-28 13:52] VITALS: BP 124/68; PULSE 70; RESP 18; TEMP 36.7; O2SAT 96
[2025-02-28 13:53] VITALS: BP 124/68; PULSE 70; RESP 18; TEMP 36.7; O2SAT 96
--- NOTE | 2025-02-28 14:54 | MHC.CM.PN ---
Pt discharged prior to meeting with this CM.
[2025-03-04 10:08] LABS: Lamotrigine Lamictal 21.3 mcg/mL (2.5-15.0)
== END 2025-02-28 13:56 | disposition home or self-care (01) ==
LOC: HO.ED 17:40 → HO.EDOVER 18:22
PROVIDERS: Admitting Provider Student in an Organized Health Care Education/Training Program; Emergency Provider Emergency Medicine; PCP Family Medicine; Visit Provider Family Medicine
DX: G40.209 Localization-related (focal) (partial) symptomatic epilepsy and epileptic syndromes with complex partial seizures, not intractable, without status epilepticus (principal); G92.8 Other toxic encephalopathy; H54.8 Legal blindness, as defined in USA; F39 Unspecified mood [affective] disorder; R27.0 Ataxia, unspecified; E78.5 Hyperlipidemia, unspecified; G47.00 Insomnia, unspecified; R53.1 Weakness; Z87.820 Personal history of traumatic brain injury; Z79.899 Other long term (current) drug therapy; Z91.148 Patient's other noncompliance with medication regimen for other reason
CPT/HCPCS: 36415; 70450; 70496; 70498; 80048; 80061; 80143; 80175; 80179; 80307; 82947; 84484; 85025; 85610; 85730; 93005; 96360; 96361; 96372; 99222; 99285; J1650; Q9967

== ENCOUNTER → 2025-02-27 15:11 | Outpatient (BNV) | payer MEDICARE, MEDICAID, SELFPAY | PROVIDERS: Emergency Provider Emergency Medicine; PCP Family Medicine; Visit Provider Radiology Diagnostic Radiology | DX: G93.89 Other specified disorders of brain (principal); R29.810 Facial weakness | CPT/HCPCS: 70450; 70496; 70498 ==

== ENCOUNTER → 2025-02-27 15:13 | Outpatient (BNV) | payer MEDICARE, SELFPAY | PROVIDERS: Admitting Provider Student in an Organized Health Care Education/Training Program; Emergency Provider Emergency Medicine; PCP Family Medicine; Visit Provider Internal Medicine | DX: I63.9 Cerebral infarction, unspecified (principal) | CPT/HCPCS: 93010 ==

== ENCOUNTER → 2025-02-27 18:06 | Outpatient (BNV) | payer MEDICARE, SELFPAY | PROVIDERS: Admitting Provider Student in an Organized Health Care Education/Training Program; Emergency Provider Emergency Medicine; PCP Family Medicine; Visit Provider Psychiatry & Neurology Neurology | DX: G40.909 Epilepsy, unspecified, not intractable, without status epilepticus (principal); G92.8 Other toxic encephalopathy | CPT/HCPCS: 99222 ==

== ENCOUNTER → 2025-02-27 18:06 | Outpatient (BNV) | payer MEDICARE, SELFPAY | PROVIDERS: Admitting Provider Student in an Organized Health Care Education/Training Program; Emergency Provider Emergency Medicine; PCP Family Medicine; Visit Provider Student in an Organized Health Care Education/Training Program | DX: G40.909 Epilepsy, unspecified, not intractable, without status epilepticus (principal); R27.0 Ataxia, unspecified; G92.9 Unspecified toxic encephalopathy; R26.2 Difficulty in walking, not elsewhere classified | CPT/HCPCS: 99222; 99239 ==

== ENCOUNTER 2025-10-26 11:40 | Outpatient (AMB) | payer MEDICARE, SELFPAY ==
[2025-10-26 12:06] VITALS: BP 108/80; PULSE 72; TEMP 36.5; O2SAT 97; BMI 27.6
--- NOTE | 2025-10-26 12:06 | MHC.OFFWIV ---
Intake Vital Signs 10/26/25 12:06 Height 5 ft 5 in Weight 166 lb BMI 27.6 BP 108/80 Blood Pressure Location Lt brachial Position Sitting Pulse 72 Pulse Source Pulse Oximeter Temp 97.7 F Temp Source Oral Pulse Oximetry (%) 97 Oxygen Delivery Method Room Air Intake Visit Reasons: EP Left eye irritation Intake Note: Patient presents c/o left eye irritation, swelling since this morning. Patient Tobacco Use Status: Never used Tobacco Allergies phenytoin (From Dilantin) Allergy (Mild, Verified 10/26/25 12:08) Unknown cephlasporins Allergy (Mild, Uncoded 10/26/25 12:08) Unknown HPI HPI Comments History of Present Illness Details History of Present Illness - The patient is a 50 year old individual presenting with an eye complaint. - The patient woke up this morning with the eye issue, which was not present yesterday. - The patient denies associated symptoms such as itching, burning, tearing, pain, or crusting. 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 - The patient has only a few percent of vision, described as tunnel vision, in the other eye. Physical Exam General: Cooperative, healthy appearing, comfortable, no acute distress and well developed Orientation: Patient oriented x3 Limitations: No limitations Eyes: Appearance abnormal. Upper eyelid swollen with an internal stye on the left upper eyelid. PERRLA. EOMI. Sclera is white. Conjunctiva is pink. No discharge noted. Neck: Normal visual inspection and Yes full ROM Respiratory: Normal respiratory effort and able to speak in complete sentences. Clear to auscultation bilaterally Cardiovascular: Regular rate and rhythm. Normal S1 and S2 Skin: Erythematous upper eyelid. Patient was informed and verbally consented to the use of an ambient scribe for clinic note documentation during this visit. [facility] Medical History Blindness of left eye Epilepsy Meningitis Surgical History H/O brain surgery Social History Household Members: Family Both parents involved: Yes Caregiver staying overnight: No Housing: Apartment Are you a primary pharmacy care coordinator to a significant other at home: No Do you presently have visiting nurse or other home services: No Alcohol intake: never Patient Tobacco Use Status: Never used Tobacco e-Cigarette/Vaping Use: Never Used service: No Current occupational status: disabled Cognitive needs: No Hearing needs: No Vision needs: Yes (Patient is blind in left eye.) Review of Systems Const All systems reviewed & are unremarkable except as noted in HPI and below Physical Exam Vital Signs: Last Vital Signs Temp 97.7 F 10/26/25 12:06 Pulse 72 10/26/25 12:06 BP 108/80 10/26/25 12:06 Pulse Ox 97 10/26/25 12:06 Oxygen Delivery Method Room Air 10/26/25 12:06 BMI result Body Mass Index 27.6 Assessment & Plan Assessment & Plan (1) Hordeolum eyelid: Code(s): H00.019 - Hordeolum externum unspecified eye, unspecified eyelid Qualifiers: Hordeolum type: internum Laterality: left Eyelid: upper Qualified Code(s): H00.024 - Hordeolum internum left upper eyelid Plan Most likely Hordeolum plan - The patient is diagnosed with a stye - Erythromycin ointment will be prescribed four times daily. - Warm compresses with a face cloth are recommended to help bring the stye to a head so it can drain. - Advised to watch for signs of worsening infection, such as the entire eye becoming red and swollen, and to follow up if this occurs. - Advised to watch for fever and to wash hands before applying the ointment. - Follow up with eye doctor Medications: New erythromycin 0.5 inches ophthalmic (eye) qid 3.5 grams 0RF Coding Level of Care Code Est Pt Level 3 (30112) Diagnoses Hordeolum internum of left upper eyelid H00.024 Hordeolum type: internum Laterality: left Eyelid: upper
--- OUTSIDE RECORDS SUMMARY | 2025-10-26 15:23 | XMS_ITS | Encounter Summary ---
Author Organization [employer] Address [address] [place] [address] Care Team Providers Care Technical Service Rep Name Role Phone Unavailable Primary Care Provider [...]
--- OUTSIDE RECORDS SUMMARY | 2025-10-26 15:23 | XMS_ITS | Clinical Summary ---
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 Name Role Phone Unavailable Primary Care Provider [...] FOBT 1975 Lipid Panel 1975 Sigmoidoscopy 1975 Disability Screening 1975 Alcohol/Substance Use Screening 1987 Tobacco Screening 1987 Family Planning (PISQ) 1990 DTaP/Tdap/Td Vaccines (1 - Tdap) 1994 Hepatitis B Vaccines (1 of 3 - 19+ 3-dose series) 1994 COVID-19 Vaccine ( - 2024-2 6 season) 2025 Influenza Vaccine (#1) 2025 Pneumococcal Vaccine: 50+ Ye ars (1 of 1 - PCV) 2025 Zoster Vaccines (1 of 2) 2025 RSV [...] patient's age to complete this topic Meningococcal B Vaccine Aged Out No l onger eligible based on patient's age to complete [...]
== END 2025-10-26 12:56 | disposition home or self-care (01) ==
PROVIDERS: PCP Family Medicine; Visit Provider Physician Assistant Medical
DX: H00.024 Hordeolum internum left upper eyelid (principal)

== ENCOUNTER → 2025-10-26 11:40 | Outpatient (BNVA) | payer MEDICARE, SELFPAY | PROVIDERS: PCP Family Medicine; Visit Provider Physician Assistant Medical | DX: H00.024 Hordeolum internum left upper eyelid (principal) | CPT/HCPCS: 99212 ==